=== PATIENT | female | born 1955 | race Caucasian/White ===

== ENCOUNTER → 2016-12-13 | Outpatient (CLI) | payer MEDICAID ==
[2016-12-13 10:11] LABS: Basophils # (A) 0.1 k/uL (0-0.2); Basophils % (A) 1 %; CH 29.1; CHCM 33.2; Eosinophils # (A) 0.2 k/uL (0-0.7); Eosinophils % (A) 2 %; HCT 42.2 % (34.0-46.0); HDW 2.75; Luc % (Auto) 1; Lymphocytes # (A) 1.8 k/uL (1.0-4.8); Lymphocytes % (A) 23 %; MCH 27.1 pg (25.0-35.0); MCHC 30.8 g/dL (31.0-37.0); MCV 88.1 fL (80.0-100.0); Monocytes # (A) 0.5 k/uL (0-1.0); Monocytes % (A) 6 %; Neutrophils # (A) 5.2 k/uL (1.3-7.7); Neutrophils % (A) 67 %; RBC 4.79 m/uL (3.80-5.40); RDW 14.6 % (11.5-15.5); WBC 7.7 k/uL (3.8-10.6); WBC (Perox) 7.94
[2016-12-13 10:40] LABS: ALT 25 U/L (9-52); AST 17 U/L (14-36); Alkaline Phosphatase 100 U/L (38-126); Anion Gap 12 mmol/L; Blood Urea Nitrogen 23 mg/dL (7-17); Carbon Dioxide 30 mmol/L (22-30); Chloride 102 mmol/L (98-107); Cholesterol 201 mg/dL (<200); Glucose 89 mg/dL (74-99); HDL Cholesterol 48 mg/dL (40-60); Non-African American GFR(MDRD) >60 (>60 ml/min/1.73 sqM); Potassium 3.6 mmol/L (3.5-5.1); Sodium 144 mmol/L (137-145); Total Bilirubin 0.6 mg/dL (0.2-1.3); Total Protein 7.1 g/dL (6.3-8.2); Triglycerides 114 mg/dL (<150)
[2016-12-13 12:15] LABS: Hemoglobin A1C 5.8 % (4.2-6.1)
== END | disposition home or self-care (01) ==
LOC: LABWHC1 08:17
PROVIDERS: ATTEND Internal Medicine Geriatric Medicine
DX: E78.00 Pure hypercholesterolemia, unspecified (principal); F32.9 Major depressive disorder, single episode, unspecified; I10 Essential (primary) hypertension; E11.9 Type 2 diabetes mellitus without complications; R53.83 Other fatigue
CPT/HCPCS: 36415; 80053; 80061; 83036; 84439; 84443; 85025

== ENCOUNTER → 2017-08-02 | Outpatient (CLI) | payer MEDICAID ==
[2017-08-02 08:45] LABS: Basophils % (A) 1 %; CH 28.5; Eosinophils # (A) 0.2 k/uL (0-0.7); Eosinophils % (A) 2 %; HCT 40.2 % (34.0-46.0); HDW 2.69; HGB 12.9 gm/dL (11.4-16.0); Luc % (Auto) 2; Lymphocytes # (A) 2.1 k/uL (1.0-4.8); Lymphocytes % (A) 25 %; MCH 28.7 pg (25.0-35.0); MCHC 32.2 g/dL (31.0-37.0); MCV 89.3 fL (80.0-100.0); Mean Platelet Volume 7.4; Monocytes # (A) 0.5 k/uL (0-1.0); Monocytes % (A) 6 %; Neutrophils # (A) 5.4 k/uL (1.3-7.7); Neutrophils % (A) 65 %; WBC 8.4 k/uL (3.8-10.6); WBC (Perox) 8.41
[2017-08-02 09:11] LABS: ALT 33 U/L (9-52); AST 23 U/L (14-36); Alkaline Phosphatase 105 U/L (38-126); Anion Gap 11 mmol/L; Blood Urea Nitrogen 21 mg/dL (7-17); Calcium 9.6 mg/dL (8.4-10.2); Carbon Dioxide 26 mmol/L (22-30); Chloride 107 mmol/L (98-107); Cholesterol 197 mg/dL (<200); Glucose 93 mg/dL (74-99); HDL Cholesterol 47 mg/dL (40-60); Non-African American GFR(MDRD) >60 (>60 ml/min/1.73 sqM); Potassium 3.7 mmol/L (3.5-5.1); Sodium 144 mmol/L (137-145); Total Bilirubin 0.3 mg/dL (0.2-1.3)
[2017-08-02 10:46] LABS: Hemoglobin A1C 5.9 % (4.2-6.1)
== END | disposition home or self-care (01) ==
LOC: LABWHC1 08:00
PROVIDERS: ATTEND Internal Medicine Geriatric Medicine
DX: E78.00 Pure hypercholesterolemia, unspecified (principal); I10 Essential (primary) hypertension; E11.9 Type 2 diabetes mellitus without complications
CPT/HCPCS: 36415; 80053; 80061; 83036; 84439; 84443; 85025

== ENCOUNTER → 2018-05-29 | Outpatient (CLI) | payer MEDICAID ==
[2018-05-29 09:16] LABS: Albumin 3.8 g/dL (3.5-5.0); Calcium 9.6 mg/dL (8.4-10.2); Total Bilirubin 0.4 mg/dL (0.2-1.3); Total Protein 6.5 g/dL (6.3-8.2)
[2018-05-29 09:29] LABS: Basophils % (A) 0 %; Eosinophils # (A) 0.1 k/uL (0-0.7); Eosinophils % (A) 2 %; HCT 39.5 % (34.0-46.0); HGB 12.9 gm/dL (11.4-16.0); Lymphocytes # (A) 2.2 k/uL (1.0-4.8); Lymphocytes % (A) 30 %; MCH 28.5 pg (25.0-35.0); MCHC 32.7 g/dL (31.0-37.0); Mean Platelet Volume 7.8; Monocytes # (A) 0.6 k/uL (0-1.0); Monocytes % (A) 8 %; Neutrophils # (A) 4.2 k/uL (1.3-7.7); Neutrophils % (A) 57 %; Platelet Count 318 k/uL (150-450); RBC 4.54 m/uL (3.80-5.40); RDW 15.6 % (11.5-15.5); WBC 7.3 k/uL (3.8-10.6)
[2018-05-29 09:31] LABS: T4, Free (Free Thyroxine) 0.99 ng/dL (0.78-2.19)
[2018-05-29 17:54] LABS: Hemoglobin A1C 5.9 % (4.0-6.0)
== END | disposition home or self-care (01) ==
LOC: LABWHC1 08:18
PROVIDERS: ATTEND Internal Medicine Geriatric Medicine
DX: I10 Essential (primary) hypertension (principal); R53.83 Other fatigue; E11.9 Type 2 diabetes mellitus without complications
CPT/HCPCS: 36415; 80053; 80061; 82607; 82728; 83036; 84439; 84443; 85025

== ENCOUNTER → 2018-09-11 | Outpatient (CLI) | payer MEDICAID ==
--- NOTE | 2018-09-11 21:30 | CONS ---
CONSULTATION REASON FOR CONSULTATION: Excessive daytime sleepiness. 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 She is falling asleep on her desk at work. She is going to bed around 10:30 p.m., waking up 6:15 am in the morning. On weekends she wakes up 7:30 am in the morning. Going to bed around 11:00 pm. On average, she is taking around 7-8 hours of sleep. No snoring and she has undergone a sleep study back in 2003 and she was told to have minimal disease. She has had had issues with sleep initiation and she has taken [id number]-[id number] diphenhydramine at a dose of 50 mg. She has also taken Neurontin 800 mg 3 times a day which is maximum dose for peripheral neuropathy/neuropathic pain. She is also on citalopram for chronic anxiety/depression. She takes that in the evening. Her other comorbidities include diabetes mellitus, hyperlipidemia, sciatica, hypertension and osteoarthritis. No previous history of sleep apnea. No narcolepsy. No sleep paralysis. No hallucinations. No cataplexy. No stroke. No head trauma. No history of any active anxiety or depression for now and she has done well treated with citalopram. She does not fall asleep while driving her vehicle. PAST MEDICAL HISTORY: Diabetes, hyperlipidemia, neuropathy, sciatica, hypertension and osteoarthritis. PAST SURGICAL HISTORY: Includes sinus surgery x2. and radiofrequency ablation of the spine and the roots. This was done for chronic back pain. DRUG ALLERGIES: Not known. OUTPATIENT MEDICATION LIST: Include Benadryl 50 mg at bedtime. Protonix 40 mg p.o. daily, Lipitor 20 mg p.o. daily, glimepiride 2 mg half tablet twice a day. Citalopram 40 mg p.o. daily, hydrocodone acetaminophen 10/325 as needed. Gabapentin 800 mg 3 times a day. Losartan 100 mg p.o. daily and Norvasc 5 mg p.o. daily. SOCIAL HISTORY: Nonsmoker. No history of alcohol, no history of IV drugs. FAMILY HISTORY: Negative for sleep apnea. REVIEW OF SYSTEMS: 12-point review of system was done. Positive findings are mentioned above in history of present illness. No history of any nocturia. No waking up choking or gasping sensation. No grinding of the teeth. No sleepwalking. No dry mouth. No panic attacks. No palpitations. No sweating. No sleepwalking. No anxiety. No claustrophobia. No recent weight gain. PHYSICAL EXAMINATION: BP is 117/71, pulse 73, respirations 16, temperature 98.4. Saturation 94% on room air. Weight is 205. Height is 5 feet 1. Neck size is 14-3/4 of an inch. Lesage score is 21, and BMI 38.7. GENERAL APPEARANCE: Calm, comfortable. HEAD: Atraumatic, normocephalic. NECK: Supple. No JVD. No goiter or neck masses. LUNGS: Clear to auscultation. HEART: Sounds are regular rate and rhythm. Normal S1, S2. No S3, S4. No murmurs. ABDOMEN: Soft, nontender, and extremities are no edema. No cyanosis or clubbing. NEUROLOGIC: The patient is alert and oriented x3. No focal neurological deficits. IMPRESSION: 1. There is excessive sleepiness in the daytime. Lesage score of 21. This is likely a drug induced phenomena. The patient is on a combination of medications which can cause excessive daytime sleepiness which include high-dose Benadryl overnight in addition to Neurontin which she is taking at a maximum dose of 2400 mg on a daily basis. 2. Diabetes mellitus. 3. Hyperlipidemia. 4. Neuropathy. 5. Sciatica. 6. Hypertension. 7. Osteoarthritis. PLAN: Recommend stopping the diphenhydramine. It is likely the patient is having sleep onset insomnia as the patient has taken citalopram at night time. We will switch the citalopram to a morning schedule and we will use zolpidem 10 mg on an as needed basis to initiate sleep if needed. A total of 20 mg pf 10 mg was given to the patient. Meanwhile I asked her to continue taking the gabapentin 800 mg only at bedtime and discontinue in the morning and noontime dose. She will go like this for another month and she will contact me back. If no improvement in her daytime sleepiness, we will do a sleep study. MMODL / IJN: [id number] /
== END ==
LOC: SLEEP 15:54
PROVIDERS: ATTEND Internal Medicine Critical Care Medicine
DX: G47.10 Hypersomnia, unspecified (principal); E11.9 Type 2 diabetes mellitus without complications; E78.5 Hyperlipidemia, unspecified; G62.9 Polyneuropathy, unspecified; M54.30 Sciatica, unspecified side; I10 Essential (primary) hypertension; M19.90 Unspecified osteoarthritis, unspecified site; Z79.899 Other long term (current) drug therapy; Z79.84 Long term (current) use of oral hypoglycemic drugs; Z79.891 Long term (current) use of opiate analgesic
CPT/HCPCS: 99211

== ENCOUNTER → 2018-12-07 | Outpatient (CLI) | payer MEDICAID ==
--- NOTE | 2018-12-07 08:43 | MR ---
MRI CERVICAL SPINE: CLINICAL HISTORY: Spondylopathy per order. Headache with neck pain for 3 months causing pain or weakn ess into both arms and fingers per patient. TECHNIQUE: Multiplanar, multisequence imaging of the cervical spine is performed without IV contrast. COMPARISON: None. FINDINGS: Sagittal images of the cervical spine show the craniocervical junction to appear within nor mal limits. The cervical and upper thoracic spinal cord is normal in caliber and signal. Vertebral alignment is straightened with grade 1 retrolisthesis of C4 on C5 and C5 on C6 appreciated. The vert ebral body heights are normal. There is mild to moderate disc space narrowing C4-C5 and C5-C6 levels. There is mild disc space narrowing C6-C7 level. Posterior disc herniations are effacing anterior the maria teresa sac at these levels on sagittal images. Additional small disc herniations are seen in the upper t horacic spine on sagittal images effacing anterior thecal sac The bone marrow signal intensity is wit hin normal limits. Mild to moderate anterior spurring mid cervical levels is noted. Axial images at C2-C3 level shows mild right-sided neural foraminal narrowing due to foraminal disc p rotrusion. Axial images at C3-C4 level show some marginal spurring and uncovertebral facet degenerative changes contributing to mild bilateral neural foraminal narrowing Axial images at C4-C5 level show spondylolisthesis and broad-based right paracentral disc protrusion effacing anterior thecal sac and causing moderate bilateral neural foraminal narrowing. Axial images at C5-C6 level show spondylolisthesis and broad-based posterior disc protrusion effacing anterior thecal sac and causing axaj-tg-gyxkfqhi bilateral neural foraminal narrowing. Axial images at C6-C7 level show lobulated right paracentral disc protrusion effacing anterior thecal sac, left-sided neural foramina is mildly narrowed. Axial images at C7-T1 level are felt within normal limits. IMPRESSION: Straightening of cervical spine with multilevel degenerative changes as detailed above, m ost prominent findings are noted cervical levels as there is additional spondylolisthesis at these le vels noted.
== END ==
LOC: RADMRIMAIN 07:43
PROVIDERS: ATTEND Internal Medicine Geriatric Medicine
DX: M48.02 Spinal stenosis, cervical region (principal); M99.71 Connective tissue and disc stenosis of intervertebral foramina of cervical region; M43.12 Spondylolisthesis, cervical region; M50.21 Other cervical disc displacement, high cervical region; M47.812 Spondylosis without myelopathy or radiculopathy, cervical region
CPT/HCPCS: 72141

== ENCOUNTER → 2019-02-05 | Outpatient (CLI) | payer MEDICAID ==
[2019-02-05 08:37] LABS: Basophils # (A) 0.1 k/uL (0-0.2); Basophils % (A) 1 %; Eosinophils # (A) 0.2 k/uL (0-0.7); Eosinophils % (A) 2 %; HCT 37.4 % (34.0-46.0); HGB 12.6 gm/dL (11.4-16.0); Lymphocytes % (A) 27 %; MCHC 33.6 g/dL (31.0-37.0); MCV 83.4 fL (80.0-100.0); Mean Platelet Volume 7.5; Monocytes # (A) 0.4 k/uL (0-1.0); Monocytes % (A) 6 %; Neutrophils # (A) 4.6 k/uL (1.3-7.7); Neutrophils % (A) 62 %; Platelet Count 411 k/uL (150-450); RBC 4.49 m/uL (3.80-5.40); WBC 7.4 k/uL (3.8-10.6)
[2019-02-05 17:21] LABS: Albumin 4.1 g/dL (3.80-4.90); Albumin/Globulin Ratio 1.95 (1.60-3.17); Anion Gap 8.5 mmol/L (4.00-12.00); Calcium 9.4 mg/dL (8.7-10.3); Carbon Dioxide 32.5 mmol/L (21.6-31.8); Globulin 2.1 g/dL (1.6-3.3); Potassium 3.3 mmol/L (3.5-5.5); Total Bilirubin 0.4 mg/dL (0.2-1.2); Total Protein 6.2 g/dL (6.2-8.2)
[2019-02-05 20:14] LABS: Hemoglobin A1C 5.8 % (4.0-6.0)
== END ==
LOC: LABWHC1 07:46
PROVIDERS: ATTEND Internal Medicine Geriatric Medicine
DX: R13.10 Dysphagia, unspecified (principal); E11.9 Type 2 diabetes mellitus without complications
CPT/HCPCS: 36415; 80053; 80061; 83036; 85025

== ENCOUNTER 2019-02-07 07:52 | Day surgery (SDC) | payer MEDICAID ==
[2019-01-30 18:18] VITALS: BMI 38.7
[~2019-02-07 07:52] MED LIST: DEXAMETHASONE SOD PHOSPHATE 10 MG/ML 1 ML VIAL IV ONE; DEXAMETHASONE SOD PHOSPHATE 4 MG/ML 1 ML VIAL IV ONE; FAMOTIDINE 20 MG/2 ML VIAL IV ONE; HYDROmorphone 0.5 MG/0.5 ML SYRINGE IVP PRN; LACTATED RINGERS 1,000 ML IV SCH; LIDOCAINE 1% 20 ML VIAL (10MG/ML) FOR IV START INTRADERMA PRN; MIDAZOLAM 2 MG/2 ML VIAL IV PRN; ONDANSETRON 4 MG/2 ML VIAL IVP ONE; SCOPOLAMINE 1.5MG/72HR PATCH TRANSDERM ONE; ceFAZolin 1,000 MG in DEXTROSE/WATER 1 50ML.BAG IV ONE
[2019-02-07 08:22] VITALS: RESP 16
[2019-02-07 08:49] LABS: Glucose,Whole Blood 110 mg/dL (75-99)
[2019-02-07] MEDS ORDERED: DEXAMETHASONE SOD PHOS (MDV) 100 MG/10 ML VIAL ONE (09:08)
[2019-02-07] MEDS ORDERED: ROCURONIUM BROMIDE 10 MG/ML 10 ML VIAL IV ONE (09:08)
[2019-02-07] MEDS ORDERED: MIDAZOLAM 2 MG/2 ML VIAL ONE (09:08)
[2019-02-07] MEDS ORDERED: fentaNYL (PF) 50 MCG/ML 2 ML AMP ONE (09:08)
[2019-02-07] MEDS ORDERED: LIDOCAINE 1% INJ 10MG/ML (20 ML MDV) ONE (09:08)
[2019-02-07] MEDS ORDERED: PROPOFOL 10 MG/ML 20 ML VIAL IV ONE (09:08)
--- NOTE | 2019-02-07 09:58 | P.OP ---
Date of Procedure: 02/07/19 Preoperative Diagnosis: Mass vallecula with cervical lymphadenopathy bilaterally Postoperative Diagnosis: Same Procedure(s) Performed: Fine-needle aspiration of bilateral neck nodes Direct microscopic laryngoscopy with removal, biopsy of vallecular mass Anesthesia: ALISONA Surgeon: Chris Anand Estimated Blood Loss (ml): 5 Pathology: other (Fine-needle aspiration of bilateral neck nodes and vallecular mass sent) Condition: stable Disposition: PACU Indications for Procedure: Patient was found to have a vallecular mass on imaging which was unusual and she also had bilateral cervical lymphadenopathy. Biopsy was recommended. Fine- needle aspiration of the bilateral neck nodes in a direct microscopic laryngoscopy with removal and biopsy is recommended. All risks, benefits, and alternative therapies were discussed. Consent was obtained and all questions were answered. Operative Findings: Patient had a large lymphoid mass at the base of the tongue and bilateral cervical lymph nodes noted in zone 2 bilaterally Description of Procedure: Patient was taken to the operative room and placed in the supine position. A general inhalation anesthetic was administered the patient by mask and subsequently intubated with a cuffed endotracheal tube by the department of anesthesia with a functioning IV line in place. Patient was monitored throughout the entire case by the department of anesthesia. The neck was steril lakisha prepped and draped in usual fashion and bilateral fine-needle aspirations were performed of the 2 bilateral lymph nodes in zone 2 on each side. Slides were prepped and sent for pathology. A tooth guard was placed and a Jako laryngoscope was placed into the patient's mouth with care to avoid any trauma to the lips teeth gums and tongue mouth was opened tongue was depressed and the entire Frederic and hypopharynx was evaluated including the piriform sinus, aryepiglottic folds, true and false cords, etc. etc. A large vallecular mass was identified and magnified under microscopic evaluation. Patient had a large amount of the lymph tissue in the vallecula that was abnormal. This was removed for biopsy purposes and the patient tolerated this well. Hemostasis was spontaneous. Patient will be seen in the office in 1 week and the patient is to call me if any problems should arise.
[2019-02-07 10:05] VITALS: TEMP 98
[2019-02-07 10:23] LABS: Glucose,Whole Blood 121 mg/dL (75-99)
[2019-02-07] MEDS ORDERED: ACETAMINOPHEN TAB 325 MG TAB PO ONE (10:56)
[2019-02-07 11:45] VITALS: BP 111/78; PULSE 74
== END 2019-02-07 11:55 | disposition home or self-care (01) ==
LOC: OR 07:52
PROVIDERS: ATTEND Otolaryngology
DX: R59.0 Localized enlarged lymph nodes (principal); E11.9 Type 2 diabetes mellitus without complications; K21.9 Gastro-esophageal reflux disease without esophagitis; J30.9 Allergic rhinitis, unspecified; M79.7 Fibromyalgia; F17.200 Nicotine dependence, unspecified, uncomplicated; Z79.84 Long term (current) use of oral hypoglycemic drugs; Z79.1 Long term (current) use of non-steroidal anti-inflammatories (NSAID); Z79.891 Long term (current) use of opiate analgesic; Z79.899 Other long term (current) drug therapy; Z88.0 Allergy status to penicillin
CPT/HCPCS: 88305; 88173; 10021; 31536; J2250; J1100 ×2; J2405; J2001; J3010; J0690; J2704

== ENCOUNTER 2019-04-05 06:56 | Day surgery (SDC) | payer MEDICAID ==
[2019-04-03 17:54] VITALS: BMI 39.1
[~2019-04-05 06:56] MED LIST changes: -DEXAMETHASONE SOD PHOSPHATE 10 MG/ML 1 ML VIAL IV ONE; -DEXAMETHASONE SOD PHOSPHATE 4 MG/ML 1 ML VIAL IV ONE; -FAMOTIDINE 20 MG/2 ML VIAL IV ONE; -HYDROmorphone 0.5 MG/0.5 ML SYRINGE IVP PRN; -LIDOCAINE 1% 20 ML VIAL (10MG/ML) FOR IV START INTRADERMA PRN; -MIDAZOLAM 2 MG/2 ML VIAL IV PRN; -ONDANSETRON 4 MG/2 ML VIAL IVP ONE; -SCOPOLAMINE 1.5MG/72HR PATCH TRANSDERM ONE; -ceFAZolin 1,000 MG in DEXTROSE/WATER 1 50ML.BAG IV ONE
[2019-04-05 07:20] VITALS: TEMP 97.3
[2019-04-05] MEDS ORDERED: LIDOCAINE 1% 20 ML VIAL (10MG/ML) FOR IV START INTRADERMA ONE (07:22)
[2019-04-05 07:24] LABS: Glucose,Whole Blood 113 mg/dL (75-99)
[2019-04-05] MEDS ORDERED: MIDAZOLAM 2 MG/2 ML VIAL ONE (07:58)
[2019-04-05] MEDS ORDERED: PROPOFOL 10 MG/ML 20 ML VIAL IV ONE (07:58)
[2019-04-05] MEDS ORDERED: fentaNYL (PF) 50 MCG/ML 2 ML AMP ONE (07:58)
--- NOTE | 2019-04-05 08:22 | P.PCN ---
Date of Procedure: 04/05/19 Procedure(s) Performed: BRIEF HISTORY: Patient is a 63-year-old [place] [address] female, scheduled for an elective colonoscopy as a part of screening for colorectal neoplasia. Last endoscopy was in 19 years ago. PROCEDURE PERFORMED: Colonoscopy. PREOPERATIVE DIAGNOSIS: Screening for colon cancer. IV sedation per Anesthesia. PROCEDURE: After informed consent was obtained, the patient, was brought into the endoscopy unit. IV sedation was administered by Anesthesia under continuous monitoring. Digital rectal examination was normal. Initially the Olympus CF-160 flexible video colonoscope was then inserted in the rectum, gradually advanced into the cecum without any difficulty. Careful examination was performed as the scope was gradually being withdrawn. Ileocecal valve and the appendiceal orifice were visualized and appeared normal. Prep was excellent. Mucosa of the cecum, ascending colon, transverse colon, descending colon, sigmoid colon, and rectum appeared normal. Retroflexion was performed in the rectum and no lesions were seen. The patient tolerated the procedure well. IMPRESSION: Normal-appearing colon from rectum to cecum with no evidence of colorectal neoplasia. RECOMMENDATIONS: Findings of this examination were discussed with the patient is well as her family. She was advised to have a repeat screening colonoscopy in 10 years.
[2019-04-05 08:47] VITALS: BP 119/82; PULSE 60; RESP 18
== END 2019-04-05 08:55 | disposition home or self-care (01) ==
LOC: ORWHC2ENDO 06:56
PROVIDERS: ATTEND Internal Medicine Gastroenterology
DX: Z12.11 Encounter for screening for malignant neoplasm of colon (principal); I10 Essential (primary) hypertension; E78.5 Hyperlipidemia, unspecified; F17.210 Nicotine dependence, cigarettes, uncomplicated; E11.9 Type 2 diabetes mellitus without complications; K21.9 Gastro-esophageal reflux disease without esophagitis; M79.7 Fibromyalgia; Z79.899 Other long term (current) drug therapy; Z98.890 Other specified postprocedural states
CPT/HCPCS: J2250; J3010; J2704; G0121

== ENCOUNTER → 2020-08-11 | Outpatient (CLI) | payer MEDICAID ==
[2020-08-11 08:42] LABS: Anisocytosis Slight; Basophils # (A) 0.1 k/uL (0-0.2); Basophils % (A) 1 %; Eosinophils # (A) 0.2 k/uL (0-0.7); Eosinophils % (A) 3 %; HCT 40.7 % (34.0-46.0); HGB 13.3 gm/dL (11.4-16.0); Lymphocytes # (A) 1.9 k/uL (1.0-4.8); Lymphocytes % (A) 25 %; MCH 28.4 pg (25.0-35.0); MCHC 32.7 g/dL (31.0-37.0); MCV 86.8 fL (80.0-100.0); Mean Platelet Volume 7.6; Monocytes # (A) 0.5 k/uL (0-1.0); Monocytes % (A) 7 %; Neutrophils # (A) 4.8 k/uL (1.3-7.7); Neutrophils % (A) 63 %; Platelet Count 345 k/uL (150-450); RBC 4.69 m/uL (3.80-5.40); RDW 16.3 % (11.5-15.5); WBC 7.7 k/uL (3.8-10.6)
[2020-08-11 16:21] LABS: African American GFR (CKD) 90.9 (60.0-200.0); Albumin 3.9 g/dL (3.80-4.90); Albumin/Globulin Ratio 1.7 (1.60-3.17); Anion Gap 9.5 mmol/L (4.00-12.00); Calcium 9.3 mg/dL (8.7-10.3); Carbon Dioxide 30.5 mmol/L (21.6-31.8); Chol/HDL Ratio 4.52; Globulin 2.3 g/dL (1.6-3.3); LDL Cholesterol,Calculated 131.2 mg/dL (0.0-131.0); Non-African American GFR(CKD) 78.5 (60.0-200.0); Potassium 3.5 mmol/L (3.5-5.5); Total Bilirubin 0.3 mg/dL (0.3-1.2); Total Protein 6.2 g/dL (6.2-8.2); VLDL Calculation 23.8 mg/dL (5.00-40.00)
[2020-08-11 17:45] LABS: Hemoglobin A1C 5.8 % (4.0-6.0)
[2020-08-11 19:29] LABS: Urine Creatinine 156.5 mg/dL
== END | disposition home or self-care (01) ==
LOC: LABWHC1 07:43
PROVIDERS: ATTEND Internal Medicine Geriatric Medicine
DX: E11.9 Type 2 diabetes mellitus without complications (principal); J44.9 Chronic obstructive pulmonary disease, unspecified; M49.8 Spondylopathy in diseases classified elsewhere
CPT/HCPCS: 36415; 80053; 80061; 82043; 82570; 83036; 84443; 85025

== ENCOUNTER → 2021-06-04 | Outpatient (CLI) | payer MEDICAID ==
--- NOTE | 2021-06-05 04:54 | MR ---
EXAMINATION TYPE: MR cervical spine wo con DATE OF EXAM: 06/04/2021 COMPARISON: 12/07/2018 HISTORY: Shoulder and neck pain into both arms for 6 months. Multiplanar multiecho imaging of the cervical spine without contrast. Cervical vertebra have normal alignment. There is degenerative disc space narrowing from C3 to C7. Th ere is anterior and posterior endplate spur formation and disc bulging from C4 to C7. Spinal canal me asures 6.5 mm at C5-6. This is the narrowest point. Canal measures 7.5 mm at C4-5. Cervical cord show s no edema. There is no cervical paraspinal mass. There is no compression fracture. Brainstem is inta ct. Facet joints appear intact. IMPRESSION: Multilevel spondylotic changes with posterior disc bulging and relative spinal stenosis at C4-5 and C 5-6. No significant change compared to old exam.
== END | disposition home or self-care (01) ==
LOC: RADMRIMAIN 15:39
PROVIDERS: ATTEND Orthopaedic Surgery
DX: M47.812 Spondylosis without myelopathy or radiculopathy, cervical region (principal)
CPT/HCPCS: 72141

== ENCOUNTER → 2021-06-16 | Outpatient (CLI) | payer MEDICAID ==
[2021-06-16 10:14] VITALS: BP 120/81; PULSE 68; RESP 18; TEMP 98.7
--- NOTE | 2021-06-16 10:24 | P.PAINCN ---
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[employer], the intensity of the pain increased over time , patient had physical therapy for several months without any significant benefit and she tried the home exercises and she continues to have severe pain, she tried the NSAID, Neurontin, Pathfork, Tylenol, she continued to have severe pain, she feels some weakness in the upper extremity bilaterally, she denies any fever or night sweats she denies any change in the bowel movements or urination Past Medical History Past Medical History: Diabetes Mellitus, Fibromyalgia, GERD/Reflux, Hyperlipidemia, Hypertension, Musculoskeletal Disorder, Osteoarthritis (OA) Additional Past Medical History / Comment(s): bulging discs History of Any Multi-Drug Resistant Organisms: None Reported Past Surgical History: Section Additional Past Surgical History / Comment(s): sinus surg. x3,mass removed from throat. sasha cataract surgery Past Anesthesia/Blood Transfusion Reactions: No Reported Reaction, Motion Sickness Smoking Status: Current every day smoker - Past Family History Mother Family Medical History: Cancer Brother(s) Family Medical History: Cancer Medications and Allergies Home Medications Medication Instructions Recorded Confirmed Type Atorvastatin [Lipitor] 20 mg PO HS 01/31/19 06/15/21 History Doxepin [SINEquan] 10 mg PO HS 01/31/19 06/15/21 History Gabapentin [Neurontin] 600 mg PO HS 01/31/19 06/15/21 History Glimepiride [Amaryl] 1 mg PO BID 01/31/19 06/15/21 History HYDROcodone/APAP 10-325MG [Pathfork 1 tab PO Q6HR PRN 01/31/19 06/15/21 History 10-325] Ibuprofen 200 mg PO Q6H PRN 01/31/19 06/15/21 History Losartan Potassium [Cozaar] 100 mg PO HS 01/31/19 06/15/21 History Pantoprazole Sodium [Protonix] 40 mg PO QAM 01/31/19 06/15/21 History amLODIPine [Norvasc] 5 mg PO HS 01/31/19 06/15/21 History Acetaminophen [Tylenol] 2 tab PO Q6H PRN 04/03/19 06/15/21 History Allergies Allergy/AdvReac Type Severity Reaction Status Date / Time Sulfa (Sulfonamide Allergy Itching Verified 06/15/21 14:47 Antibiotics) Physical Exam Vitals: Vital Signs Temp Pulse Resp BP Pulse Ox 06/16/21 09:58 98.7 F 68 18 120/81 96 Physical Examinations : -Constitutiona : Cooperative , not in acute distress . -HEENT : nech : supple , no Lymphadenopathy , normal thyroid size . : eyes : no ptosis , no icterus, no photophobia . - neurologic : Cranial nerve II to XII intact , no focal neurological deffecit . -psychatric : alert , oriented X 3 , appropriate affect , intact judgment and insight . -Lymphatic : no Lymphadenopathy . - musculoskeltal : Cervical Spine motor stregnth in the deltoid and biceps, normal right side , normal Left side motor stregnth biceps and the wrist extensors normal right side ,normal left side . motor stregnth in the triceps muscle . normal Right side , normal Left side deep tendon reflexes normal at the biceps , normal at Brachioradialis , normal at triceps. cervical facet loading test: Positive Bilaterally Spurling test= positive Right , positive left. Neck distraction test= positive Right , positive left. Vicky sign= positive right, positive left . Decrease range of motion of shoulder joints bilaterlly . Lumber spine moter stegnth lower extremities ,thigh and legs 5/5 Right side , 5/5 Left side Results Comments: MRI of the cervical spine without contrast multilevel spondylosis in the cervical spine and spinal stenosis at C4 5 and C5 6 Assessment and Plan Plan: Assessment and plan=1-cervical spinal stenosis. 2-cervical spondylosis with cervical facet a rthropathy without myelopathy. Patient could benefit from cervical epidural steroid injection at C6 7 If she continued to have severe neck pain after epidural steroid injection 2 and then we'll do diagnostic medial branch block Time with Patient: Greater than 30 PQRS Measure Charge Sheet Measure #130: Documentation of Current Meds in Medical Chart: Patient's medications documented in chart Measure #226: Tobacco Use: Screen & Cessation Intervention: Pt not a tobacco user Measure #111: Pneumonia Vaccination: Pneumococcal vaccine NOT administered or previously given Measure #47: Advance Care Plan: Advance care planning discussed & documented, pt chose/unable to give Measure #412: Opioid Treatment Agreement: No documentation of signed opioid treatment agreement Measure #408: Opioid Therapy Follow-up Evaluation: Patient had NO f/u eval minimum every 3 months during opioid therapy Measure #317: Preventitive Care & Scrn High Bld Press & F/U: Normal blood pressure, f/u not required Measure #128: Body Mass Index (BMI) Screening & Follow-up: BMI documented ABOVE normal parameters - f/u documented Measure #131: Pain Assessment & Follow-up: Pain positive & plan documented, Follow-up scheduled Measure #431: Unhealthy Alcohol Use Preventative Care & Scrn: Patient not identified as an unhealthy alcohol user PQRS Narrative: Smoking Status Current every day smoker Blood Pressure 120/81 Pain Intensity [Neck] 3 Scale Used Numeric (1 - 10) Hx Alcohol Use (MH) Yes: occ Home Medications: Ambulatory Orders Atorvastatin [Lipitor] 20 mg PO HS 01/31/19 Doxepin [SINEquan] 10 mg PO HS 01/31/19 Gabapentin [Neurontin] 600 mg PO HS 01/31/19 Glimepiride [Amaryl] 1 mg PO BID 01/31/19 HYDROcodone/APAP 10-325MG [Pathfork 10-325] 1 tab PO Q6HR PRN 01/31/19 Ibuprofen 200 mg PO Q6H PRN 01/31/19 Losartan Potassium [Cozaar] 100 mg PO HS 01/31/19 Pantoprazole Sodium [Protonix] 40 mg PO QAM 01/31/19 amLODIPine [Norvasc] 5 mg PO HS 01/31/19 Acetaminophen [Tylenol] 2 tab PO Q6H PRN 04/03/19
== END | disposition home or self-care (01) ==
LOC: PNWHC3 09:37
PROVIDERS: ATTEND Specialist
DX: M54.12 Radiculopathy, cervical region (principal); M50.30 Other cervical disc degeneration, unspecified cervical region; M48.02 Spinal stenosis, cervical region; M47.892 Other spondylosis, cervical region
CPT/HCPCS: 99211

== ENCOUNTER 2021-07-06 07:31 | Day surgery (SDC) | payer MEDICAID ==
[2021-07-01 14:30] VITALS: BMI 40.6
[2021-07-06 07:59] VITALS: RESP 16
[2021-07-06] MEDS ORDERED: LIDOCAINE 1% (10MG/ML) FOR IV START INTRADERMA ONE (08:05)
[2021-07-06 08:07] LABS: Glucose,Whole Blood 113 mg/dL (75-99)
[2021-07-06] MEDS ORDERED: MIDAZOLAM 2 MG/2 ML VIAL ONE (08:11)
[2021-07-06] MEDS ORDERED: DEXAMETHASONE SOD PHOSPHATE 10 MG/ML 1 ML VIAL ONE (08:11)
[2021-07-06] MEDS ORDERED: IOPAMIDOL M200 10 ML VIAL ONE (08:11)
[2021-07-06] MEDS ORDERED: fentaNYL (PF) 50 MCG/ML 2 ML AMP ONE (08:11)
--- NOTE | 2021-07-06 08:26 | P.PCN ---
Date of Procedure: 07/06/21 Procedure(s) Performed: . PROCEDURE 1. Cervical epidural steroid injection under fluoroscopic guidance, C 6-7 (fluoroscopy images available in the radiology department ) 2. Cervical epidurogram. PREOPERATIVE DIAGNOSIS: 1- Cervical spinal stenosis 2-cervical spondylosis with cervical Facet arthropathy without myelopathy POSTOPERATIVE DIAGNOSIS: : 1- Cervical spinal stenosis 2-cervical spondylosis with cervical Facet arthropathy without myelopathy ANESTHESIA: Local anesthesia with lidocaine 1 % , and moderate sedation, with Versed 1 mg ,and Fentanyl 50 mcg. EBL 0 PROCEDURE INDICATION: The patient with neck pain and radiculitis unresponsive to conservative treatment consents for procedure. PROCEDURE DESCRIPTION / TECHNIQUE: The patient was seen and identified in the preoperative area. Risks, benefits, complications, including but not limited to infections ,bleeding , allergic reactions to the medications ,and not complete pain releife, and alternatives were discussed with the patient, the patient agreed to proceed with the procedure and signed the consent. Patient was taken to the OR and time out was completed. The patient was placed in the prone position on the procedure table. A pillow was placed under the patients chest to increase the cervical interlaminar space. The cervical area was prepped and draped in the usual sterile fashion. Vital signs were closely monitored during the procedure. Conscious sedation was used during the procedure to decrease patients anxiety. Using anterior-posterior fluoroscopy, the C6-7 interlaminar space was identified and the skin over this site was marked and then infiltrated with 1% lidocaine subcutaneously. Subsequently, a 20-gauge 3-1/2-inch Tuohy epidural needle was inserted and advanced toward the epidural space by means of the ``hanging-drop technique and guided by AP and lateral fluoroscopy. The correct needle position in the epidural space was verified with the injection of 2 mL of the water soluble contrast dye Isovue-200 and observing an excellent epidurogram with the epidural spread of the dye, after negative aspiration for blood and CSF and in the absence of paresthesias. then, mixture containing 20 mg Dexamethasone and 2 ml of preservative-free normal saline injected and a washout of epidurogram was seen. Needle was withdrawn intact, skin was cleansed, and bandages were applied. Complications= none. Disposition= patient was placed in supine position and transferred to the recovery room area in stable condition and there was no evidence of upper or lower extremity motor or sensory deficit after the procedure patient was discharged from recovery room after discharge criteria met and home discharge instructions was given by the staff and patient will follow with the pain clinic in 2-4 weeks
[2021-07-06] MEDS ORDERED: IV FLUID CONTINUATION 800 ML IV ONE (08:28)
[2021-07-06 08:36] LABS: Glucose,Whole Blood 117 mg/dL (75-99)
--- NOTE | 2021-07-06 08:43 | FL ---
Fluoroscopy INDICATION: Pain FINDINGS: Fluoroscopy time: 7 seconds. Images obtained: 1. IMPRESSIONS: 1. Documentation of fluoroscopy.
[2021-07-06 08:45] VITALS: BP 143/92; PULSE 63
== END 2021-07-06 08:58 | disposition home or self-care (01) ==
LOC: ORPAIN 07:31
PROVIDERS: ATTEND Specialist
DX: M47.812 Spondylosis without myelopathy or radiculopathy, cervical region (principal); M48.02 Spinal stenosis, cervical region; F41.9 Anxiety disorder, unspecified
CPT/HCPCS: 62321; 64490; J2250; J1100; J3010; Q9966; 99152

== ENCOUNTER 2021-07-29 07:05 | Day surgery (SDC) | payer MEDICAID ==
[2021-07-28 10:47] VITALS: BMI 39.4
[2021-07-29 07:28] VITALS: TEMP 97.2
[2021-07-29 07:29] LABS: Glucose,Whole Blood 84 mg/dL (75-99)
[2021-07-29] MEDS ORDERED: MIDAZOLAM 2 MG/2 ML VIAL ONE (07:32)
[2021-07-29] MEDS ORDERED: IOPAMIDOL M200 10 ML VIAL ONE (07:32)
[2021-07-29] MEDS ORDERED: DEXAMETHASONE SOD PHOSPHATE 10 MG/ML 1 ML VIAL ONE (07:32)
[2021-07-29] MEDS ORDERED: fentaNYL (PF) 50 MCG/ML 2 ML AMP ONE (07:32)
--- NOTE | 2021-07-29 07:44 | P.PCN ---
Date of Procedure: 07/29/21 Procedure(s) Performed: PROCEDURE 1. Cervical epidural steroid injection under fluoroscopic guidance, C 6-7 (fluoroscopy images available in the radiology department ) 2. Cervical epidurogram. PREOPERATIVE DIAGNOSIS: 1- Cervical spinal stenosis 2-cervical spondylosis with cervical Facet arthropathy without myelopathy POSTOPERATIVE DIAGNOSIS: : 1- Cervical spinal stenosis 2-cervical spondylosis with cervical Facet arthropathy without myelopathy ANESTHESIA: Local anesthesia with lidocaine 1 % , and moderate sedation, with Versed 1 mg ,and Fentanyl 50 mcg. EBL 0 PROCEDURE INDICATION: The patient with neck pain and radiculitis unresponsive to conservative treatment consents for procedure. PROCEDURE DESCRIPTION / TECHNIQUE: The patient was seen and identified in the preoperative area. Risks, benefits, complications, including but not limited to infections ,bleeding , allergic reactions to the medications ,and not complete pain releife, and alternatives were discussed with the patient, the patient agreed to proceed with the procedure and signed the consent. Patient was taken to the OR and time out was completed. The patient was placed in the prone position on the procedure table. A pillow was placed under the patients chest to increase the cervical interlaminar space. The cervical area was prepped and draped in the usual sterile fashion. Vital signs were closely monitored during the procedure. Conscious sedation was used during the procedure to decrease patients anxiety. Using anterior-posterior fluoroscopy, the C6-7 interlaminar space was identified and the skin over this site was marked and then infiltrated with 1% lidocaine subcutaneously. Subsequently, a 20-gauge 3-1/2-inch Tuohy epidural needle was inserted and advanced toward the epidural space by means of the ``hanging-drop technique and guided by AP and lateral fluoroscopy. The correct needle position in the epidural space was verified with the injection of 2 mL of the water soluble contrast dye Isovue-200 and observing an excellent epidurogram with the epidural spread of the dye, after negative aspiration for blood and CSF and in the absence of paresthesias. then, mixture containing 20 mg Dexamethasone and 2 ml of preservative-free normal saline injected and a washout of epidurogram was seen. Needle was withdrawn intact, skin was cleansed, and bandages were applied. Complications= none. Disposition= patient was placed in supine position and transferred to the [facility] area in stable condition and there was no evidence of upper or lower extremity motor or sensory deficit after the procedure patient was discharged from recovery room after discharge criteria met and home discharge instructions was given by the staff and patient will follow with the pain clinic in 2-4 weeks
[2021-07-29 07:54] VITALS: RESP 16
[2021-07-29 08:12] VITALS: BP 111/74; PULSE 69
--- NOTE | 2021-07-29 08:32 | FL ---
Fluoroscopy HISTORY: Pain 9 seconds fluoroscopy time supplied to the referring clinician. 1 intraoperative C-arm images docume nt the procedure. See dictated report from anesthesia.
== END 2021-07-29 08:18 | disposition home or self-care (01) ==
LOC: ORPAIN 07:05
PROVIDERS: ATTEND Specialist
DX: M47.22 Other spondylosis with radiculopathy, cervical region (principal); M48.02 Spinal stenosis, cervical region; Z88.2 Allergy status to sulfonamides; Z78.0 Asymptomatic menopausal state; E11.9 Type 2 diabetes mellitus without complications
CPT/HCPCS: 62321; J2250; J1100; J3010; Q9966

== ENCOUNTER → 2021-08-03 | Outpatient (CLI) | payer MEDICAID | END | disposition home or self-care (01) | LOC: LABWHC1 08:55 | PROVIDERS: ATTEND Internal Medicine Geriatric Medicine | DX: Z53.9 Procedure and treatment not carried out, unspecified reason (principal) ==

== ENCOUNTER → 2021-08-03 | Outpatient (CLI) | payer MEDICAID ==
[2021-08-03 16:33] LABS: Basophils # (A) 0.03 X 10*3/uL (0.00-0.10); Basophils % (A) 0.4 %; Eosinophils # (A) 0.23 X 10*3/uL (0.04-0.35); Eosinophils % (A) 2.7 %; HCT 38.2 % (37.2-46.3); HGB 12.3 g/dL (12.0-15.0); Lymphocytes % (A) 26.9 %; MCH 28.3 pg (27.0-32.0); MCHC 32.2 g/dL (32.0-37.0); MCV 87.8 fL (80.0-97.0); Mean Platelet Volume 10.9 fL (9.5-12.2); Monocytes # (A) 0.64 X 10*3/uL (0.20-1.00); Monocytes % (A) 7.5 %; Neutrophils # (A) 5.34 X 10*3/uL (1.80-7.70); Neutrophils % (A) 62.3 %; Platelet Count 355 X 10*3/uL (140-440); RBC 4.35 X 10*6/uL (4.10-5.20); RDW 15.6 % (11.5-14.5); WBC 8.56 X 10*3/uL (4.50-10.00)
[2021-08-04 20:20] LABS: African American GFR (CKD) 52.1 (60.0-200.0); Albumin 4.1 g/dL (3.8-4.9); Albumin/Globulin Ratio 1.53 (1.60-3.17); Anion Gap 21.2 mmol/L (4.00-12.00); BUN/Creat Ratio 21.75 Ratio (12.00-20.00); Blood Urea Nitrogen 27.4 mg/dL (9.0-27.0); Calcium 9.3 mg/dL (8.7-10.3); Carbon Dioxide 23.2 mmol/L (21.6-31.8); Chol/HDL Ratio 5.62 Ratio; Globulin 2.7 g/dL (1.6-3.3); HDL Cholesterol 40.2 mg/dL (40.00-60.00); LDL Cholesterol,Calculated 149.8 mg/dL (0.0-131.0); Potassium 3.6 mmol/L (3.5-5.5); Total Bilirubin 0.3 mg/dL (0.30-1.20); Total Protein 6.7 g/dL (6.2-8.2)
== END | disposition home or self-care (01) ==
LOC: LABWHC1 08:23
PROVIDERS: ATTEND Internal Medicine Geriatric Medicine
DX: J44.9 Chronic obstructive pulmonary disease, unspecified (principal); E78.2 Mixed hyperlipidemia; E11.9 Type 2 diabetes mellitus without complications; G62.9 Polyneuropathy, unspecified
CPT/HCPCS: 36415; 80053; 80061; 83036; 84443; 85025

== ENCOUNTER → 2021-08-23 | Outpatient (CLI) | payer MEDICAID ==
[2021-08-23 08:58] VITALS: BP 121/88; PULSE 74; RESP 18; TEMP 98.9
--- NOTE | 2021-08-23 09:31 | P.PN ---
Subjective Progress Note Date: 08/23/21 This is Follow up visit for this 65 years old female ,with a chronic history of severe neck pain, radiation to the shoulder area bilaterally, started more than 8 months ago ,she denies any initiating event patient reported that she does a lot of computer work she works as a engineering secretary, the intensity of the pain increased over time , patient had physical therapy for several months without any significant benefit, and she tried the home exercises ,and she continues to have severe pain, she tried the NSAID, Neurontin, [place], Tylenol, she continued to have severe pain, recently we have done cervical epidural steroid injections 2, he feels some improvement of her neck pain but she continued to have severe upper extremity pain especially in the humerus area bilaterally she feels some weakness in the upper extremity bilaterally, she denies any fever or night sweats she denies any change in the bowel movements or urination Physical Examinations : -Constitutiona : Cooperative , not in acute distress . -HEENT : nech : supple , no Lymphadenopathy , normal thyroid size . : eyes : no ptosis , no icterus, no photophobia . - neurologic : Cranial nerve II to XII intact , no focal neurological deffecit . -psychatric : alert , oriented X 3 , appropriate affect , intact judgment and insight . -Lymphatic : no Lymphadenopathy . - musculoskeltal : Cervical Spine motor stregnth in the deltoid and biceps, normal right side , normal Left side motor stregnth biceps and the wrist extensors normal right side ,normal left side . motor stregnth in the triceps muscle . normal Right side , normal Left side deep tendon reflexes normal at the biceps , normal at Brachioradialis , normal at triceps. cervical facet loading test: Positive Bilaterally Spurling test= positive Right , positive left. Neck distraction test= positive Right , positive left. Vicky sign= positive right, positive left . Decrease range of motion of shoulder joints bilaterlly . Lumber spine moter stegnth lower extremities ,thigh and legs 5/5 Right side , 5/5 Left side Result MRI of the cervical spine without contrast multilevel spondylosis in the cervical spine and spinal stenosis at C4 5 and C5 6 Assessment and plan=1-cervical spinal stenosis. 2-cervical spondylosis with cervical facet arthropathy without myelopathy. Patient could benefit from repeate cervical epidural steroid injection at C6 7 In the future if she continued to have severe neck pain , and we should consider doing diagnostic medial branch block cervical Time with Patient: less than 30 PQRS Measure Charge Sheet Measure #130: Documentation of Current Meds in Medical Chart: Patient's medications documented in chart Measure #226: Tobacco Use: Screen & Cessation Intervention: Pt not a tobacco user Measure #111: Pneumonia Vaccination: Pneumococcal vaccine NOT administered or previously given Measure #47: Advance Care Plan: Advance care planning discussed & documented, pt chose/unable to give Measure #412: Opioid Treatment Agreement: No documentation of signed opioid treatment agreement Measure #408: Opioid Therapy Follow-up Evaluation: Patient had NO f/u eval minimum every 3 months during opioid therapy Measure #317: Preventitive Care & Scrn High Bld Press & F/U: Normal blood pressure, f/u not required Measure #128: Body Mass Index (BMI) Screening & Follow-up: BMI documented ABOVE normal parameters - f/u documented Measure #131: Pain Assessment & Follow-up: Pain positive & plan documented, Follow-up scheduled Measure #431: Unhealthy Alcohol Use Preventative Care & Scrn: Patient not ernée ntified as an unhealthy alcohol user PQRS Narrative: Objective - Vital Signs Vital signs: Vital Signs Temp 98.9 F 08/23/21 08:53 Pulse 74 08/23/21 08:53 Resp 18 08/23/21 08:53 BP 121/88 08/23/21 08:53 Pulse Ox 96 08/23/21 08:53
== END | disposition home or self-care (01) ==
LOC: PNWHC3 08:40
PROVIDERS: ATTEND Specialist
DX: M48.02 Spinal stenosis, cervical region (principal); M47.892 Other spondylosis, cervical region; M46.92 Unspecified inflammatory spondylopathy, cervical region
CPT/HCPCS: 99211

== ENCOUNTER 2021-10-14 07:34 | Day surgery (SDC) | payer MEDICAID ==
[2021-10-12 15:51] VITALS: BMI 40.2
[2021-10-14] MEDS ORDERED: LACTATED RINGERS 1,000 ML IV SCH (07:35)
[2021-10-14 08:01] VITALS: RESP 16; TEMP 97.9
[2021-10-14] MEDS ORDERED: LIDOCAINE 1% (10MG/ML) FOR IV START INTRADERMA ONE (08:08)
[2021-10-14 08:10] LABS: Glucose,Whole Blood 92 mg/dL (75-99)
[2021-10-14] MEDS ORDERED: IOPAMIDOL M200 10 ML VIAL ONE (08:29)
[2021-10-14] MEDS ORDERED: DEXAMETHASONE SOD PHOSPHATE 10 MG/ML 1 ML VIAL ONE (08:29)
[2021-10-14] MEDS ORDERED: MIDAZOLAM 2 MG/2 ML VIAL ONE (08:29)
[2021-10-14] MEDS ORDERED: .fentaNYL (PF) 50 MCG/ML 2 ML AMP ONE (08:29)
--- NOTE | 2021-10-14 08:41 | P.PCN ---
Date of Procedure: 10/14/21 Procedure(s) Performed: PROCEDURE 1. Cervical epidural steroid injection under fluoroscopic guidance, C 6-7 (fluoroscopy images available in the radiology department ) 2. Cervical epidurogram. PREOPERATIVE DIAGNOSIS: 1- Cervical spinal stenosis 2-cervical spondylosis with cervical Facet arthropathy without myelopathy POSTOPERATIVE DIAGNOSIS: : 1- Cervical spinal stenosis 2-cervical spondylosis with cervical Facet arthropathy without myelopathy ANESTHESIA: Local anesthesia with lidocaine 1 % , and moderate sedation, with Versed 2 mg ,and Fentanyl 100 mcg. EBL 0 PROCEDURE INDICATION: The patient with neck pain and radiculitis unresponsive to conservative treatment consents for procedure. PROCEDURE DESCRIPTION / TECHNIQUE: The patient was seen and identified in the preoperative area. Risks, benefits, complications, including but not limited to infections ,bleeding , allergic reactions to the medications ,and not complete pain releife, and alternatives were discussed with the patient, the patient agreed to proceed with the procedure and signed the consent. Patient was taken to the OR and time out was completed. The patient was placed in the prone position on the procedure table. A pillow was placed under the patients chest to increase the cervical interlaminar space. The cervical area was prepped and draped in the usual sterile fashion. Vital signs were closely monitored during the procedure. Conscious sedation was used during the procedure to decrease patients anxiety. Using anterior-posterior fluoroscopy, the C6-7 interlaminar space was identified and the skin over this site was marked and then infiltrated with 1% lidocaine subcutaneously. Subsequently, a 20-gauge 3-1/2-inch Tuohy epidural needle was inserted and advanced toward the epidural space by means of the ``hanging-drop technique and guided by AP and lateral fluoroscopy. The correct needle position in the epidural space was verified with the injection of 2 mL of the water soluble contrast dye Isovue-200 and observing an excellent epidurogram with the epidural spread of the dye, after negative aspiration for blood and CSF and in the absence of paresthesias. then, mixture containing 15 mg Dexamethasone and 2 ml of preservative-free normal saline injected and a washout of epidurogram was seen. Needle was withdrawn intact, skin was cleansed, and bandages were applied. Complications= none. Disposition= patient was placed in supine position and [place] [facility] [place] area in stable condition and there was no evidence of upper or lower extremity motor or sensory deficit after the procedure patient was discharged from recovery room after discharge criteria met and home discharge instructions was given by the staff and patient will follow with the pain clinic in 2-4 weeks
[2021-10-14] MEDS ORDERED: IV FLUID CONTINUATION 1,000 ML IV ONE (08:44)
[2021-10-14 09:00] VITALS: BP 109/75; PULSE 78
--- NOTE | 2021-10-15 08:27 | FL ---
Fluoroscopy INDICATION: Pain FINDINGS: Fluoroscopy time: 5 seconds. Images obtained: 1. IMPRESSIONS: 1. Documentation of fluoroscopy.
== END 2021-10-14 09:14 | disposition home or self-care (01) ==
LOC: ORPAIN 07:34
PROVIDERS: ATTEND Specialist
DX: M48.02 Spinal stenosis, cervical region (principal); M47.812 Spondylosis without myelopathy or radiculopathy, cervical region
CPT/HCPCS: 62321; 99152

== ENCOUNTER → 2021-11-03 | Outpatient (CLI) | payer MEDICAID, MEDICARE ==
[2021-11-03 09:58] VITALS: BP 112/73; PULSE 77; RESP 18; TEMP 98.1
--- NOTE | 2021-11-03 10:29 | P.PN ---
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, the intensity of the pain increased over time , patient had physical therapy for several months without any significant benefit, and she tried the home exercises ,and she continues to have severe pain, she tried the NSAID, Neurontin, [place], Tylenol, she continued to have severe pain, recently we have done cervical epidural steroid injections 3, she feels some improvement of her neck pain, but she continued to have s evere neck pain , she feels some weakness in the upper extremity bilaterally, she denies any fever or night sweats she denies any change in the bowel movements or urination Physical Examinations : -Constitutiona : Cooperative , not in acute distress . -HEENT : nech : supple , no Lymphadenopathy , normal thyroid size . : eyes : no ptosis , no icterus, no photophobia . - neurologic : Cranial nerve II to XII intact , no focal neurological deffecit . -psychatric : alert , oriented X 3 , appropriate affect , intact judgment and insight . -Lymphatic : no Lymphadenopathy . - musculoskeltal : Cervical Spine motor stregnth in the deltoid and biceps, normal right side , normal Left side motor stregnth biceps and the wrist extensors normal right side ,normal left side . motor stregnth in the triceps muscle . normal Right side , normal Left side deep tendon reflexes normal at the biceps , normal at Brachioradialis , normal at triceps. cervical facet loading test: Positive Bilaterally Spurling test= positive Right , positive left. Neck distraction test= positive Right , positive left. Vicky sign= positive right, positive left . Decrease range of motion of shoulder joints bilaterlly . Lumber spine moter stegnth lower extremities ,thigh and legs 5/5 Right side , 5/5 Left side Result MRI of the cervical spine without contrast multilevel spondylosis in the cervical spine and spinal stenosis at C4 5 and C5 6 Assessment and plan= 1-cervical spinal stenosis. 2-cervical spondylosis with cervical facet arthropathy without myelopathy. Patient here to have severe neck pain after cervical epidural steroid injections 3 Schimpf will be good candidate to have diagnostic medial branch block cervical C4 , C5 ,C6 bilaterally , possible RFA - PQRS measures = - Patient's medications are documented in the chart. -Tobacco use is positive, and counseling.Given. -Patient's has not received pneumococcal vaccine. -Advanced care planning discussed, patient not eligible. -Opiate contract not signed. -Pain positive and follow-up visit/procedure is scheduled. -Patient's blood pressure measured [ 112/73 ] , and documented in the record ,and patient will follow up with the primary care. -Patient's weight was measured and body mass index [ 41.2] above the,normal limits and counseling was done. and patient instructed to follow-up with the primary care physician. -Patient was not identified as an unhealthy alcohol user Time with Patient: less than 30 Objective - Vital Signs Vital signs: Vital Signs Temp 98.1 F 11/03/21 09:48 Pulse 77 11/03/21 09:48 Resp 18 11/03/21 09:48 BP 112/73 11/03/21 09:48 Pulse Ox 95 11/03/21 09:48 Intake & Output 11/02/21 11/03/21 11/03/21 18:59 06:59 18:59 Weight 98.883 kg
== END | disposition home or self-care (01) ==
LOC: PNWHC3 09:27
PROVIDERS: ATTEND Specialist
DX: M47.892 Other spondylosis, cervical region (principal); M48.02 Spinal stenosis, cervical region
CPT/HCPCS: 99211

== ENCOUNTER 2021-12-10 08:08 | Day surgery (SDC) | payer MEDICAID ==
[2021-12-08 15:40] VITALS: BMI 38.9
[2021-12-10] MEDS ORDERED: fentaNYL (PF) 50 MCG/ML 2 ML AMP ONE (08:43)
[2021-12-10] MEDS ORDERED: MIDAZOLAM 2 MG/2 ML VIAL ONE (08:43)
[2021-12-10] MEDS ORDERED: methylPREDNISolone ACETATE 40 MG/ML 1 ML VIAL ONE (08:43)
[2021-12-10] MEDS ORDERED: ROPIVACAINE 5MG/ML 20ML VIAL ONE (08:43)
[2021-12-10 08:44] LABS: Glucose,Whole Blood 103 mg/dL (75-99)
[2021-12-10 08:45] VITALS: TEMP 98.1
--- NOTE | 2021-12-10 09:12 | P.PCN ---
Date of Procedure: 12/10/21 Procedure(s) Performed: PREOPERATIVE DIAGNOSIS: Cervical Spondylosis with Facet Arthropathy.without myelopathy POSTOPERATIVE DIAGNOSIS: Cervical Spondylosis Facet Arthropathy. Without myelopathy PROCEDURES: Diagnostic Bilateral C4 , C5 , and C6 medial branch blocks, with fluoroscopic guidance (fluoroscopy images available in radiology department ) ( to target the facet joint at Bilateral C4- 5 , C5- 6 )#1 st ANESTHESIA: Monitored anesthesia care as per anesthesia department EBL: Minimal PROCEDURE INDICATION: The patient with neck pain secondary to cervical arthropathy unresponsive to more conservative treatments. PROCEDURE DESCRIPTION / TECHNIQUE: The patient was seen and identified in the preoperative area. Risks, benefits, complications, and alternatives were discussed with the patient, the patient agreed to proceed with the procedure and signed the consent. IV was started. Vital signs remained stable throughout the procedure. Patient was taken to the OR and time out was completed. The patient was placed in the prone position on the procedure table. A pillow was placed under the patients chest to increase the cervical interlaminar space. The cervical area was prepped and draped in the usual sterile fashion. Critical pause was taken. Vital signs were closely monitored during the procedure. Conscious sedation was used during the procedure to decrease patients anxiety. Using cross-table lateral fluoroscopy, the centroid of the trapezoid of right C4 , C5 and C6, was identified, marked, and localized with 1% lidocaine 1 ml at each level for skin and Sub Q infiltrations . Subsequently, a 22 G 3 spinal needle was advanced guided by fluoroscopy to the centroid of the trapezoid of Right C3, C4 , C5, C6 . [place] tip position was confirmed at the centroid of the trapezoids of Right C4 , C5 ,C6 with anteroposterior fluoroscopy. Subsequently, 1.5 ml of preservative-free Ropivacaine 0.5% mixed with Depo- Medrol 20 mg and half ml of the mixture was injected after negative aspiration for blood and CSF. [place] was then removed intact the same procedure was repeated at the left , C4 , C5 , and C6 levels. COMPLICATIONS: No acute complications. DISPOSITION / PLANS: The patient was placed in a supine position and transferred to the recovery area in a stable condition for observation and was discharged from the recovery room after meeting discharge criteria. Home discharge instructions given to the patient by the staff. The patient was reexamined prior to discharge. The patient will schedule a follow up in the clinic in 2-4 weeks.
[2021-12-10] MEDS ORDERED: IV FLUID CONTINUATION 1,000 ML IV ONE (09:15)
[2021-12-10 09:33] VITALS: BP 109/71; PULSE 70; RESP 18
--- NOTE | 2021-12-10 09:48 | FL ---
EXAMINATION TYPE: FL guided pain mgmt statistic DATE OF EXAM: 12/10/2021 HISTORY: Pain bilat ceervical facet block 3 levels, 18sec fl time
== END 2021-12-10 09:46 | disposition home or self-care (01) ==
LOC: ORPAIN 08:08
PROVIDERS: ATTEND Specialist
DX: M47.812 Spondylosis without myelopathy or radiculopathy, cervical region (principal); I10 Essential (primary) hypertension; E78.5 Hyperlipidemia, unspecified; J45.909 Unspecified asthma, uncomplicated; M19.90 Unspecified osteoarthritis, unspecified site; F17.210 Nicotine dependence, cigarettes, uncomplicated; M79.7 Fibromyalgia; K21.9 Gastro-esophageal reflux disease without esophagitis; Z79.1 Long term (current) use of non-steroidal anti-inflammatories (NSAID); Z79.891 Long term (current) use of opiate analgesic; Z79.899 Other long term (current) drug therapy; Z88.0 Allergy status to penicillin; Z88.8 Allergy status to other drugs, medicaments and biological substances
CPT/HCPCS: 64490; 64491; J2250; J1030; J3010; J2795

== ENCOUNTER 2022-01-21 10:04 | Day surgery (SDC) | payer MEDICAID ==
[2022-01-19 12:39] VITALS: BMI 40.4
[~2022-01-21 10:04] MED LIST changes: +LIDOCAINE 1% (10MG/ML) FOR IV START INTRADERMA PRN
[2022-01-21 10:29] VITALS: TEMP 97.6
[2022-01-21 10:42] LABS: Glucose,Whole Blood 117 mg/dL (75-99)
[2022-01-21] MEDS ORDERED: ROPIVACAINE 5MG/ML 20ML VIAL ONE (11:09)
[2022-01-21] MEDS ORDERED: MIDAZOLAM 2 MG/2 ML VIAL ONE (11:09)
[2022-01-21] MEDS ORDERED: methylPREDNISolone ACETATE 40 MG/ML 1 ML VIAL ONE (11:09)
--- NOTE | 2022-01-21 11:38 | P.PCN ---
Date of Procedure: 01/21/22 Procedure(s) Performed: PREOPERATIVE DIAGNOSIS: Cervical Spondylosis with Facet Arthropathy.without myelopathy POSTOPERATIVE DIAGNOSIS: Cervical Spondylosis Facet Arthropathy. Without myelopathy PROCEDURES: Diagnostic Bilateral C4 , C5 , and C6 medial branch blocks, with fluoroscopic guidance (fluoroscopy images available in radiology department ) ( to target the facet joint at Bilateral C4- 5 , C5- 6 )#2nd ANESTHESIA: Monitored anesthesia care as per anesthesia department EBL: Minimal PROCEDURE INDICATION: The patient with neck pain secondary to cervical arthropathy unresponsive to more conservative treatments. PROCEDURE DESCRIPTION / TECHNIQUE: The patient was seen and identified in the preoperative area. Risks, benefits, complications, and alternatives were discussed with the patient, the patient agreed to proceed with the procedure and signed the consent. IV was started. Vital signs remained stable throughout the procedure. Patient was taken to the OR and time out was completed. The patient was placed in the prone position on the procedure table. A pillow was placed under the patients chest to increase the cervical interlaminar space. The cervical area was prepped and draped in the usual sterile fashion. Critical pause was taken. Vital signs were closely monitored during the procedure. Conscious sedation was used during the procedure to decrease patients anxiety. Using cross-table lateral fluoroscopy, the centroid of the trapezoid of right C4 , C5 and C6, was identified, marked, and localized with 1% lidocaine 1 ml at each level for skin and Sub Q infiltrations . Subsequently, a 25 G 3 spinal needle was advanced guided by fluoroscopy to the centroid of the trapezoid of Right C4 , C5, C6 . [place] tip position was confirmed at the centroid of the trapezoids of Right C4 , C5 ,C6 with anteroposterior fluoroscopy. Subsequently, 1.5 ml of preservative-free Ropivacaine 0.5% mixed with Depo- Medrol 20 mg and half ml of the mixture was injected after negative aspiration for blood and CSF. [place] was then removed intact the same procedure was repeated at the left , C4 , C5 , and C6 levels. COMPLICATIONS: No acute complications. DISPOSITION / PLANS: The patient was placed in a supine position and transferred to the recovery area in a stable condition for observation and was discharged from the recovery room after meeting discharge criteria. Home discharge instructions given to the patient by the staff. The patient was reexamined prior to discharge. The patient will schedule a follow up in the clinic in 2-4 weeks.
[2022-01-21] MEDS ORDERED: IV FLUID CONTINUATION 1,000 ML IV ONE ×2 (11:44)
[2022-01-21 11:49] VITALS: RESP 16
--- NOTE | 2022-01-21 11:50 | FL ---
EXAMINATION TYPE: FL guided pain mgmt statistic DATE OF EXAM: 01/21/2022 CLINICAL HISTORY: Neck pain. TECHNIQUE: Fluoroscopy. COMPARISON: None. FINDINGS: Fluoroscopic guidance was provided during pain relief procedure performed by Dr. Salazar . A total of 23 seconds of fluoroscopic time was utilized during the procedure and 4 spot images are acquired. Images acquired shows needle localization at multiple levels in the cervical spine. IMPRESSION: As Above.
[2022-01-21 12:05] VITALS: BP 115/76; PULSE 53
== END 2022-01-21 13:01 | disposition home or self-care (01) ==
LOC: ORPAIN 10:04
PROVIDERS: ATTEND Specialist
DX: M47.812 Spondylosis without myelopathy or radiculopathy, cervical region (principal); I10 Essential (primary) hypertension; E78.5 Hyperlipidemia, unspecified; F17.200 Nicotine dependence, unspecified, uncomplicated; M79.7 Fibromyalgia; K21.9 Gastro-esophageal reflux disease without esophagitis; Z88.2 Allergy status to sulfonamides; Z88.8 Allergy status to other drugs, medicaments and biological substances; Z98.891 History of uterine scar from previous surgery; Z98.890 Other specified postprocedural states
CPT/HCPCS: 64490; 64491; J2250; J1030; J2795

== ENCOUNTER → 2022-02-07 | Outpatient (CLI) | payer MEDICAID ==
[2022-02-07 09:05] VITALS: BP 100/66; PULSE 77; RESP 18; TEMP 98.4
--- NOTE | 2022-02-07 09:12 | P.PN ---
Subjective Progress Note Date: 02/07/22 Principal diagnosis: A 66 yr old female with a history of severe and chronic neck pain secondary to cervical degenerative disc diseases and spondylosis presents today for evaluation status post facet blocks of the medial branches C4-C5, C5-C6 #2. Patient states she expressed 50% pain relief for 3 days status post procedure. Pain level is currently at 4-10 intensity, dull, achy in character in the middle aspect of the cervical spine with radiation pain to the bilateral s houlders. Pain escalates as high as 9 out of 10 with rotation, extension and lifting. Pain is alleviated with medications, topical Biofreeze, injections, heat, physical therapy in May 2021, home exercise regimen, massage therapy twice a month and rest. Interventional pain procedures completed include Lumbar RFA years ago Patient is currently on Haught[place] from Dr Boogie. OTC Tylenol & OTC Motrin. Patient denies any side effects of the medication(s), denies excessive drowsiness or sleepiness, denies suicidal ideation and reports that the current pain medication is helping to control the pain and improve activities of daily living. Patient denies any motor or sensory deficits. Patient denies any fever or night sweats, denies any change in the bowel movements or urination. Physical Examination: -Constitutional: Cooperative. Not in acute distress . -HEENT: Neck is supple. No lymphadenopathy. No thyromegaly. Normal thyroid size. Eyes: No ptosis , no icterus, no photophobia. ENT: No auditory deficits. Normal oropharynx. No Thrush. - Respiratory: Chest clear to auscultations bilaterally. No wheezing. No rhonchi. - Cardiovascular: Regular rate and rhythm. S1 / S2 , no S3 , no S4. - Gastrointestinal: Abdomen soft no tenderness. Bowel sounds positive in all four quadrants. No organomegaly. - Genitourinary: Deferred. - Neurologic: Cranial nerve II to XII intact. No focal neurological deficits. - Psychatric: Alert & oriented x 3. Matching mood & appropriate affect. Judgment and insight intact. - Lymphatic: No Lymphadenopathy. - Musculoskeletal: Cervical spine: Muscle bulk/ tone/ strength in the bilateral upper extremities normal. Facet loading test cervical area positive. Lumbar spine: Motor bulk/ tone/ strength lower extremities , thigh and legs : 5/5 Deep tendon reflexes : Normal Knee Jerk. Normal Ankle Jerk . Vertebral body tenderness to palpation over Lumbar Facet Loading Test positive Straight Leg Raise: positive at 30 degrees right side/ left side Gaenslen's Test positive Sacral spine : Severe tenderness over the Sacroiliac joint: right side / left side Range of motion: Flexion of the lumbar spine <60 degrees Range of motion: Extension of the lumbar spine <20 degrees Gaenslen's Test positive [place] Maria test: positive right side / left side Assessment and plan: Chronic neck pain secondary to cervical degenerative disc disease , spondylosis with facet arthropathy without myelopathy Recommendation of bilateral RFA C4-C5, C5-C6. Risks, benefits procedure discussed patient verbalized understanding. Admits to medical history diabetes with glimmer pride use. Denies anticoagulant use. Protocol for discontinuation/ continuation of medications nir procedure discussed. All patient questions answered MAPS reviewed and it was appropriate. I have spent 31 minutes on patient care today. Dr Salazar was available by phone for the evaluation of this patient. The time was used to review the medical records including relevant urine studies and Prescription history (MAPs), review of the available imaging, evaluation and examination of the patient, coordination of care with the medical staff and if applicable referring physicians, as well as creation of the medical record Objective - Vital Signs Vital signs: Vital Signs Temp 98.4 F 02/07/22 08:59 Pulse 77 02/07/22 08:59 Resp 18 02/07/22 08:59 BP 100/66 02/07/22 08:59 Pulse Ox 97 02/07/22 08:59 PQRS Measure Charge Sheet Mode of Arrival: Ambulatory - Pain Location Neck Non-Pharmacological Interventions: Chiropractic Treatment, Heat, Home Exercise, Inactivity, Massage, Physical Therapy, Position/Reposition, Stretching Pharmacological Interventions: Block, PRN Medication, Topical Medication PQRS Narrative: Smoking Status Current every day smoker Blood Pressure 100/66 Pain Intensity [Neck] 4 Scale Used Numeric (1 - 10) Hx Alcohol Use (MH) Yes: occ Home Medications: Ambulatory Orders Atorvastatin [Lipitor] 20 mg PO HS 01/31/19 Doxepin [SINEquan] 10 mg PO HS 01/31/19 Gabapentin [Neurontin] 600 mg PO HS 01/31/19 Glimepiride [Amaryl] 1 mg PO BID 01/31/19 HYDROcodone/APAP 10-325MG [Haughton 10-325] 1 tab PO Q6HR PRN 01/31/19 Ibuprofen 200 mg PO Q6H PRN 01/31/19 Losartan Potassium [Cozaar] 100 mg PO HS 01/31/19 Pantoprazole Sodium [Protonix] 40 mg PO QAM 01/31/19 amLODIPine [Norvasc] 5 mg PO HS 01/31/19 Acetaminophen [Tylenol] 2 tab PO Q6H PRN 04/03/19 Citalopram Hydrobromide [Citalopram HBr] 40 mg PO DAILY 08/19/21 Triamterene/Hydrochlorothiazid [Triamterene-Hctz 37.5-25 mg Tb] 2 tab PO DAILY 12/08/21
== END | disposition home or self-care (01) ==
LOC: PNWHC3 08:22
PROVIDERS: ATTEND Specialist
DX: M47.892 Other spondylosis, cervical region (principal); M50.30 Other cervical disc degeneration, unspecified cervical region
CPT/HCPCS: 99211

== ENCOUNTER → 2022-02-25 | Day surgery (SDC) | payer MEDICAID ==
[~2022-02-25] MED LIST changes: +IV FLUID CONTINUATION 700 ML IV ONE; +LACTATED RINGERS 1,000 ML IV ONE; -LACTATED RINGERS 1,000 ML IV SCH; -LIDOCAINE 1% (10MG/ML) FOR IV START INTRADERMA PRN; +MIDAZOLAM 2 MG/2 ML VIAL ONE; +ROPIVACAINE 5MG/ML 20ML VIAL ONE; +fentaNYL (PF) 50 MCG/ML 2 ML AMP ONE; +methylPREDNISolone ACETATE 40 MG/ML 1 ML VIAL ONE
[2022-02-25 07:36] VITALS: TEMP 97.3
[2022-02-25 07:40] LABS: Glucose,Whole Blood 101 mg/dL (75-99)
--- NOTE | 2022-02-25 08:32 | P.PCN ---
Date of Procedure: 02/25/22 Procedure(s) Performed: PREOPERATIVE DIAGNOSIS: Cervical spondylosis with Facet Arthropathy without myelopathy. POSTOPERATIVE DIAGNOSIS: Cervical spondylosis with Facet Arthropathy without myelopathy. PROCEDURES: Radiofrequency thermocoagulation, Right C4, C5, C6 medial branch with Fluroscopy Guidence(fluoroscopy was available in Radiology department ) (to denervate the facet joint at Right C4- 5 , C5- 6 ) ANESTHESIA: Monitored anesthesia care as per anesthesia department . EBL: Minimal PROCEDURE INDICATION: The patient with neck pain secondary to cervical arthropathy who had more than 50% relief of her pain with previous diagnostic cervical medial branch block. PROCEDURE DESCRIPTION / TECHNIQUE: The patient was seen and identified in the preoperative area. Risks, benefits, complications, and alternatives were discussed with the patient, the patient agreed to proceed with the procedure and signed the consent. IV was started. Vital signs remained stable throughout the procedure. Patient was taken to the OR and time out was completed. The patient was placed in the Lateral position on the procedure table( right side up ). A pillow was placed under the patients chest to increase the cervical interlaminar space. The cervical area was prepped and draped in the usual sterile fashion. Critical pause was taken. Vital signs were closely monitored during the procedure. Conscious sedation was used during the procedure to decrease patients anxiety. Using cross-table lateral fluoroscopy, the centroid of the trapezoid of right C4, C5, and C6 were identified, marked, and localized with 1% lidocaine. Subsequently, a 20 [id number] radiofrequency cannula with a 10-mm active tip was advanced guided by fluoroscopy to the centroid of the trapezoid of right C4, C5, and C6 . Needle tip position was confirmed at the centroid of the trapezoids of right C4, C5, and C6 with anteroposterior fluoroscopy. Each site then underwent sensory testing at 50 Hz and 0 to 1 volt and motor testing at 2 Hz and 0 to 3 volt with local stimulation, but no radicular symptoms down the arm. Thereafter each sites underwent radiofrequency thermocoagulation at 80 degrees celsius for 90 seconds after injecting 0.5 ml of PF Ropivacaine 0.5 %. After thermocoagulation, 1 ml of the block solution containing Depo-Medrol 40 mg and 5 mL of preservative-free normal saline was injected at the right C4, C5, and C6 levels after negative aspiration of CSF and blood and with no paresthesias. Cannulas were retracted while injecting lidocaine 1% until the needle is out. Skin was cleansed and bandages were applied. COMPLICATIONS: No acute complications. DISPOSITION / PLANS: The patient was placed in a supine position and transferred to the recovery area in a stable condition for observation and was discharged from the recovery room after meeting discharge criteria. Home discharge instructions given to the patient by the staff. The patient was reexamined prior to discharge. The patient will scheduled to have an RFA of the left side. note= patient was scheduled to have RFA cervical facet bilateral at C4 5 ,and C5 6, I positioned the patient in prone position, I was not able to visualize C5 or C6 vertebra, then patient placed in supine position, also I was not able to visualize C5 or C6 vertebra, then patient placed in lateral position, right side up, and I was able to visualize C4 ,C5 and C6 , I was planning to do bilateral RFA, but during the procedure,the patient was complaining of numbness in her both upper extremity, while we were doing the sensory and motor testing, for this reason,it will be safer, to do one side today ,and do the other side later.
[2022-02-25 08:36] VITALS: RESP 16
[2022-02-25 08:48] VITALS: BP 119/77; PULSE 63
--- NOTE | 2022-02-25 14:49 | FL ---
Fluoroscopy INDICATION: Pain FINDINGS: Fluoroscopy time: 29 seconds. Images obtained: 3. IMPRESSIONS: 1. Documentation of fluoroscopy.
== END | disposition home or self-care (01) ==
LOC: ORPAIN 07:01
PROVIDERS: ATTEND Specialist
DX: M47.812 Spondylosis without myelopathy or radiculopathy, cervical region (principal); I10 Essential (primary) hypertension; E11.9 Type 2 diabetes mellitus without complications; F17.290 Nicotine dependence, other tobacco product, uncomplicated; K21.9 Gastro-esophageal reflux disease without esophagitis; Z79.899 Other long term (current) drug therapy; Z88.2 Allergy status to sulfonamides; Z88.8 Allergy status to other drugs, medicaments and biological substances
CPT/HCPCS: 64633; 64634; J2250; J1030; J3010; J2795

== ENCOUNTER → 2022-03-08 | Outpatient (CLI) | payer MEDICAID ==
[2022-03-08 15:19] LABS: Basophils # (A) 0.05 X 10*3/uL (0.00-0.10); Basophils % (A) 0.5 %; Eosinophils # (A) 0.24 X 10*3/uL (0.04-0.35); Eosinophils % (A) 2.2 %; HCT 38.6 % (37.2-46.3); Immature Grans, Automated 0.5 %; Lymphocytes # (A) 2.21 X 10*3/uL (0.90-5.00); Lymphocytes % (A) 20.7 %; MCH 27.7 pg (27.0-32.0); MCHC 31.1 g/dL (32.0-37.0); MCV 89.1 fL (80.0-97.0); Monocytes # (A) 0.71 X 10*3/uL (0.20-1.00); Monocytes % (A) 6.6 %; NRBC Per 100 WBC 0 /100 WBCS (0.0-0.0); Neutrophils # (A) 7.43 X 10*3/uL (1.80-7.70); Neutrophils % (A) 69.5 %; Platelet Count 398 X 10*3/uL (140-440); RBC 4.33 X 10*6/uL (4.10-5.20); RDW 15.5 % (11.5-14.5); WBC 10.69 X 10*3/uL (4.50-10.00)
[2022-03-08 15:36] LABS: ALT 10 U/L (8-44); AST 15 U/L (13-35); African American GFR (CKD) 54.9 (60.0-200.0); Albumin 4.2 g/dL (3.8-4.9); Albumin/Globulin Ratio 1.31 (1.60-3.17); Alkaline Phosphatase 104 U/L (41-126); BUN/Creat Ratio 17.75 Ratio (12.00-20.00); Blood Urea Nitrogen 21.3 mg/dL (9.0-27.0); Calcium 9.5 mg/dL (8.7-10.3); Carbon Dioxide 29.9 mmol/L (20.0-27.5); Chloride 98 mmol/L (96-109); Chol/HDL Ratio 4.63 Ratio; Globulin 3.2 g/dL (1.6-3.3); Glucose 73 mg/dL (70-110); LDL Cholesterol,Calculated 146.4 mg/dL (0.0-131.0); Non-African American GFR(CKD) 47.4 (60.0-200.0); Potassium 3.2 mmol/L (3.5-5.5); Sodium 141 mmol/L (135-145); Total Protein 7.4 g/dL (6.2-8.2)
== END | disposition home or self-care (01) ==
LOC: LABWHC1 08:14
PROVIDERS: ATTEND Nurse Practitioner Family
DX: E11.9 Type 2 diabetes mellitus without complications (principal)
CPT/HCPCS: 36415; 80053; 80061; 83036; 84439; 84443; 85025

== ENCOUNTER 2022-03-11 06:16 | Day surgery (SDC) | payer MEDICAID ==
[2022-03-10 13:09] VITALS: BMI 39.4
[2022-03-11] MEDS ORDERED: LACTATED RINGERS 1,000 ML IV ONE (07:07)
[2022-03-11 07:08] VITALS: TEMP 97.5
[2022-03-11 07:19] LABS: Glucose,Whole Blood 95 mg/dL (75-99)
[2022-03-11] MEDS ORDERED: LACTATED RINGERS 1,000 ML IV SCH (07:30)
[2022-03-11] MEDS ORDERED: MIDAZOLAM 2 MG/2 ML VIAL ONE (07:38)
[2022-03-11] MEDS ORDERED: DEXAMETHASONE SOD PHOSPHATE 10 MG/ML 1 ML VIAL ONE (07:38)
[2022-03-11] MEDS ORDERED: fentaNYL (PF) 50 MCG/ML 2 ML AMP ONE (07:38)
[2022-03-11] MEDS ORDERED: ROPIVACAINE 5MG/ML 20ML VIAL ONE (07:38)
--- NOTE | 2022-03-11 08:10 | P.PCN ---
Date of Procedure: 03/11/22 Description of Procedure: PREOPERATIVE DIAGNOSIS: Cervical Facet syndrome /cervical spondylosis. POSTOPERATIVE DIAGNOSIS: Cervical Facet syndrome /cervical spondylosis. PROCEDURES: Left Radiofrequency thermocoagulation of C4-C5, and C5-C6 medial branches, with fluoroscopic guidance, SURGEON: Alona Vaca ANESTHESIA: Local , and IV sedation: Versed 2mg , and [id number] mcg EBL: None Specimen removed: None Fluoroscopic image: Saved to electronic medical records. PROCEDURE INDICATION: The patient returns for cervical RFTC following previous positive diagnostic nerve blocks. Patient tried conservative therapy with marginal pain relief. PROCEDURE DESCRIPTION: The patient was seen and identified in the preoperative area. Risks, benefits, complications, and alternatives were discussed with the patient. The patient agreed to pursue with the procedure and signed the consent. IV was started and vital signs were stable. Patient was taken to the procedure room and time out was completed. The patient was placed in the prone position on the procedure table and cervical area was prepped with ChloraPrep 2 and draped in the usual sterile fashion. Critical pause was taken. Vital signs were closely monitored during the procedure. Using AP fluoroscopy, the waists of lateral margins of C4, C5, and C6 were identified and localized with 1 mL of 1% lidocaine. Used 20 [id number] radiofrequency cannula with a 10-mm active tip. Using the posterior approach, radiofrequency cannulas were guided by anterior posterior fluoroscopy to the waists of the lateral masses of C4, C5, and C6. Needle tip position was confirmed at the centroid of the trapezoids of C4, C5, and C6 with lateral fluor oscopy. Each site then underwent motor testing was done at 2 Hz and 0 to 2.5 volt with local stimulation, but no radicular symptoms down the arm. After negative aspiration for blood and CSF , 0.5 mill of block solution were given, and then C3, C4,C5 and C6 sites underwent radiofrequency thermocoagulation at 80 degrees celsius for 90 seconds. After thermocoagulation, the C4, C5, and C6 underwent injection of 0.5 mL of block solution after negative aspiration of CSF and blood and with no paresthesias. Block solution contained 10 MG of dexamethasone and 3 mL of preservative-free ropivacaine 0. 5%. Cannulas were retracted approximately 1 cm and then upon further withdrawal of the needles, the skin was infiltrated with 1 mL of 0.5% ropivacaine at each level. Skin was cleansed and bandages were applied. COMPLICATIONS: None. DISPOSITION / PLANS: The patient was placed in a supine position and transferred to the recovery area in a stable condition for observation and was discharged from the recovery room after meeting discharge criteria. Home discharge instructions given to the patient by the staff. The patient was reexamined prior to discharge. The patient will schedule a left side cervical radiofrequency ablation in 4 weeks.
[2022-03-11] MEDS ORDERED: IV FLUID CONTINUATION 600 ML IV ONE (08:13)
--- NOTE | 2022-03-11 08:20 | FL ---
Fluoroscopy History: M50.30 OTHER CERVICAL DDD,M48.02,M54.12 M50.30 OTHER CERVICAL DDD,M48.02,M54.12
[2022-03-11 08:41] VITALS: BP 119/57; PULSE 60; RESP 20
== END 2022-03-11 08:57 | disposition home or self-care (01) ==
LOC: ORPAIN 06:16
DX: M47.812 Spondylosis without myelopathy or radiculopathy, cervical region (principal)
CPT/HCPCS: 64633; 64634; J2250; J1100; J3010; J2795; 99211

== ENCOUNTER → 2022-05-18 | Outpatient (CLI) | payer MEDICAID ==
[2022-05-18 13:00] VITALS: BP 110/77; PULSE 75; RESP 18; TEMP 98
--- NOTE | 2022-05-18 13:26 | P.PAINPG ---
Objective - Vital Signs Vital signs: Vital Signs Temp 98.0 F 05/18/22 12:50 Pulse 75 05/18/22 12:50 Resp 18 05/18/22 12:50 BP 110/77 05/18/22 12:50 Pulse Ox 97 05/18/22 12:50 FiO2 Intake & Output 05/17/22 05/18/22 05/18/22 18:59 06:59 18:59 Weight 94.801 kg PQRS Measure Charge Sheet Mode of Arrival: Ambulatory Comment: A 66 yr old female with a history of severe and chronic low back pain secondary to lumbar degenerative disc diseases and lumbar spondylosis with facet arthropathy presents today for evaluation of RFA L C4-C5, C5-C6. She states she experienced 50% pain relief s/p procedure. Pain level is currently at /10. Pain is from her BL shoulders, intermittent, sharp/ shooting towards the UEs. Pain is provoked by lifting and overhead reaching. Pain is alleviated with medications (Steedman, Tylenol Arthritis, Ibuprofen), topicals, heat, PT in May 2021 for 6 wks, currently receiving massage therapy semi monthly, chiropractic treatments last in April 2021 monthly, repositioning, home based stretching regimen and rest. Interventional pain procedures completed include L RFA C4-C5, C5-C6 Patient is currently on Steedman, Tylenol Arthritis, Ibuprofen Patient denies any side effects of the medication(s), denies excessive drowsiness or sleepiness, denies suicidal ideation and reports that the current pain medication is helping to control the pain and improve activities of daily living. Patient denies any motor or sensory deficits. Patient denies any fever or night sweats, denies any change in the bowel movements or urination. Physical Examination: -Constitutional: Cooperative. Not in acute distress . - Neurologic: Cranial nerve II to XII intact. No focal neurological deficits. - Psychatric: Alert & oriented x 3. Matching mood & appropriate affect. Judgment and insight intact. - Musculoskeletal: Cervical spine: Muscle bulk/ tone/ strength in the bilateral upper extremities normal Vertebral body tenderness to palpation over Spurling test positive L>R Distraction test positive Facet loading test positive Thoracic spine Muscle bulk / tone/ strength in the bilateral paraspinal muscles normal Vertebral body tender to palpation over Facet loading test positive Lumbar spine: Motor bulk/ tone/ strength lower extremities , thigh and legs : 5/5 Deep tendon reflexes : Normal Knee Jerk. Normal Ankle Jerk . Vertebral body tenderness to palpation over Lumbar Facet Loading Test positive Straight Leg Raise: positive at 30 degrees right side/ left side Gaenslen's Test positive Sacral spine : Severe tenderness over the Sacroiliac joint: right side / left side Range of motion: Flexion of the lumbar spine <60 degrees Range of motion: Extension of the lumbar spine <20 degrees Gaenslen's Test positive Joseph's Test positive Rosa Maria test: positive right side / left side Thigh Thrust Test Sacral Thrust Test Assessment and plan: Chronic low back pain secondary to lumbar degenerative disc disease , lumbar spondylosis with facet arthropathy without myelopathy Pt exhibited satisfactory pain relief with the L RFA C4-C5, C5-C6 procedure. She will follow up with Dr Raygoza and Dr Ascencio for the time being and will return to our office on an as needed basis. Risks, benefits of procedure discussed and pt verbalized understanding. Denies anticoagulant use or medical history of diabetes. All patient questions answered MAPS reviewed and it was appropriate. I have spent less than 30 minutes on patient care today. Dr Salazar was available by phone for the evaluation of this patient. The time was used to review the medical records including relevant urine studies and Prescription history (MAPs), review of the available imaging, evaluation and examination of the patient, coordination of care with the medical staff and if applicable referring physicians, as well as creation of the medical record - Pain Location Bilateral Arm Non-Pharmacological Interventions: Chiropractic Treatment, Heat, Inactivity, Massage, Physical Therapy, Stretching Pharmacological Interventions: Block, PRN Medication, Scheduled Medication, Topical Medication PQRS Narrative: Smoking Status Current every day smoker Blood Pressure 110/77 Pain Intensity [Bilateral Arm] 3 Scale Used Numeric (1 - 10) Hx Alcohol Use (MH) Yes: occ Home Medications: Ambulatory Orders Atorvastatin [Lipitor] 20 mg PO HS 01/31/19 Doxepin [SINEquan] 10 mg PO HS 01/31/19 Gabapentin [Neurontin] 600 mg PO HS 01/31/19 Glimepiride [Amaryl] 1 mg PO BID 01/31/19 HYDROcodone/APAP 10-325MG [Steedman 10-325] 1 tab PO Q6HR PRN 01/31/19 Ibuprofen 200 mg PO Q6H PRN 01/31/19 Losartan Potassium [Cozaar] 100 mg PO HS 01/31/19 Pantoprazole Sodium [Protonix] 40 mg PO QAM 01/31/19 amLODIPine [Norvasc] 5 mg PO HS 01/31/19 Acetaminophen [Tylenol] 2 tab PO Q6H PRN 04/03/19 Citalopram Hydrobromide [Citalopram HBr] 40 mg PO DAILY 08/19/21 Triamterene/Hydrochlorothiazid [Triamterene-Hctz 37.5-25 mg Tb] 2 tab PO DAILY 12/08/21 Controlled Substance Measures - Controlled Substance Measures Is patient prescribed a controlled substance at discharge?: No
== END ==
LOC: PNWHC3 12:35
PROVIDERS: ATTEND Specialist
DX: M47.816 Spondylosis without myelopathy or radiculopathy, lumbar region (principal); M51.36 Other intervertebral disc degeneration, lumbar region; G89.29 Other chronic pain; F17.200 Nicotine dependence, unspecified, uncomplicated; Z88.8 Allergy status to other drugs, medicaments and biological substances; Z88.2 Allergy status to sulfonamides
CPT/HCPCS: 99211

== ENCOUNTER → 2022-07-20 | Outpatient (CLI) | payer MEDICAID ==
[2022-07-20 16:20] LABS: Basophils # (A) 0.05 X 10*3/uL (0.00-0.10); Basophils % (A) 0.6 %; Eosinophils # (A) 0.21 X 10*3/uL (0.04-0.35); Eosinophils % (A) 2.7 %; HCT 36.5 % (37.2-46.3); HGB 11.5 g/dL (12.0-15.0); Immature Grans, Automated 0.3 %; Lymphocytes # (A) 1.85 X 10*3/uL (0.90-5.00); Lymphocytes % (A) 23.5 %; MCH 27.4 pg (27.0-32.0); MCHC 31.5 g/dL (32.0-37.0); MCV 87.1 fL (80.0-97.0); Mean Platelet Volume 11.3 fL (9.5-12.2); Monocytes # (A) 0.67 X 10*3/uL (0.20-1.00); Monocytes % (A) 8.5 %; NRBC Per 100 WBC 0 /100 WBCS (0.0-0.0); Neutrophils # (A) 5.08 X 10*3/uL (1.80-7.70); Neutrophils % (A) 64.4 %; Platelet Count 379 X 10*3/uL (140-440); RBC 4.19 X 10*6/uL (4.10-5.20); RDW 16.2 % (11.5-14.5); WBC 7.88 X 10*3/uL (4.50-10.00)
[2022-07-20 16:26] LABS: ALT 13 U/L (8-44); AST 16 U/L (13-35); African American GFR (CKD) 46.8 (60.0-200.0); Albumin/Globulin Ratio 1.53 (1.60-3.17); Alkaline Phosphatase 112 U/L (41-126); BUN/Creat Ratio 15.04 Ratio (12.00-20.00); Blood Urea Nitrogen 20.6 mg/dL (9.0-27.0); Carbon Dioxide 29.4 mmol/L (20.0-27.5); Chloride 101 mmol/L (96-109); Globulin 2.6 g/dL (1.6-3.3); Glucose 83 mg/dL (70-110); LDL Cholesterol,Calculated 125.9 mg/dL (0.0-131.0); Non-African American GFR(CKD) 40.4 (60.0-200.0); Potassium 3.4 mmol/L (3.5-5.5); Sodium 144 mmol/L (135-145); Total Protein 6.6 g/dL (6.2-8.2)
== END | disposition home or self-care (01) ==
LOC: LABWHC1 08:10
PROVIDERS: ATTEND Internal Medicine Geriatric Medicine
DX: N18.9 Chronic kidney disease, unspecified (principal); E78.2 Mixed hyperlipidemia; E11.9 Type 2 diabetes mellitus without complications; G62.9 Polyneuropathy, unspecified
CPT/HCPCS: 36415; 80053; 80061; 83036; 84443; 85025

== ENCOUNTER → 2022-12-05 | Outpatient (CLI) | payer MEDICAID ==
--- NOTE | 2022-12-05 07:29 | US ---
EXAMINATION TYPE: US duplex aorta DATE OF EXAM: 12/05/2022 COMPARISON: NONE CLINICAL HISTORY: I71.40 ABDOMINAL AORTIC ANEURYSM wo rupture unsp. TECHNIQUE: Multiple sonographic images of the abdominal aorta are obtained. FINDINGS: EXAM MEASUREMENTS: Abdominal Aorta: Proximal: 2.0cm Mid: 1.5cm Distal: 1.4cm Bifurcation: Right: 1.2cm Left:0.9cm Normal color Doppler flow identified. IMPRESSION: No ultrasound evidence for abdominal aortic aneurysm.
== END | disposition home or self-care (01) ==
LOC: RADUSWWP 07:01
PROVIDERS: ATTEND Internal Medicine Geriatric Medicine
DX: I71.40 Abdominal aortic aneurysm, without rupture, unspecified (principal)
CPT/HCPCS: 93979

== ENCOUNTER → 2024-07-19 | Outpatient (CLI) | payer BC ==
[2024-07-19 19:04] LABS: Basophils # (A) 0.06 X 10*3/uL (0.00-0.10); Basophils % (A) 0.8 %; Eosinophils # (A) 0.26 X 10*3/uL (0.04-0.35); Eosinophils % (A) 3.5 %; HCT 40.6 % (37.2-46.3); HGB 12.9 g/dL (12.0-15.0); Lymphocytes # (A) 1.58 X 10*3/uL (0.90-5.00); Lymphocytes % (A) 21.4 %; MCH 27.7 pg (27.0-32.0); MCHC 31.8 g/dL (32.0-37.0); MCV 87.3 FL (80.0-97.0); Mean Platelet Volume 10.8 FL (9.5-12.2); Monocytes # (A) 0.46 X 10*3/uL (0.20-1.00); Monocytes % (A) 6.2 %; NRBC Per 100 WBC 0 X 10*3/uL (0.00-0.01); Neutrophils # (A) 4.98 X 10*3/uL (1.80-7.70); Neutrophils % (A) 67.7 %; Platelet Count 407 X 10*3/uL (140-440); RBC 4.65 X 10*6/uL (4.10-5.20); RDW 15.5 % (11.5-14.5); WBC 7.37 X 10*3/uL (4.50-10.00)
[2024-07-19 20:43] LABS: ALT 11 U/L (8-44); AST 13 U/L (13-35); Albumin 4.2 g/dL (3.8-4.9); Albumin/Globulin Ratio 1.75 Ratio (1.60-3.17); Alkaline Phosphatase 98 U/L (41-126); BUN/Creat Ratio 24.38 Ratio (12.00-20.00); Blood Urea Nitrogen 19.5 mg/dL (9.0-27.0); Calcium 9.4 mg/dL (8.7-10.3); Carbon Dioxide 24.9 mmol/L (21.6-31.8); Chloride 106 mmol/L (96-109); Globulin 2.4 g/dL (1.6-3.3); Glucose 99 mg/dL (70-110); Sodium 144 mmol/L (135-145); Total Bilirubin 0.3 mg/dL (0.3-1.2); Total Protein 6.6 g/dL (6.2-8.2); Uric Acid 3.9 mg/dL (2.9-7.7)
== END | disposition home or self-care (01) ==
LOC: LABWHC1 14:08
PROVIDERS: ATTEND Internal Medicine Geriatric Medicine
DX: Z12.31 Encounter for screening mammogram for malignant neoplasm of breast (principal); I12.9 Hypertensive chronic kidney disease with stage 1 through stage 4 chronic kidney disease, or unspecified chronic kidney disease; E11.22 Type 2 diabetes mellitus with diabetic chronic kidney disease; M81.0 Age-related osteoporosis without current pathological fracture; N18.9 Chronic kidney disease, unspecified
CPT/HCPCS: 36415; 80053; 82043; 82570; 83036; 84443; 84550; 85025

== ENCOUNTER → 2025-05-02 | Outpatient (CLI) | payer MEDICARE ==
--- NOTE | 2025-05-02 15:50 | XR ---
EXAMINATION TYPE: XR chest 2V DATE OF EXAM: 05/02/2025 3:40 PM COMPARISON: 07/24/2014 CLINICAL INDICATION: Female, 69 years old with history of R05.9 COUGH, TECHNIQUE: XR chest 2V view(s) obtained. FINDINGS: The heart size is normal. The pulmonary vasculature is normal. The lungs are clear. IMPRESSION: 1. No acute pulmonary process. [facility], , 05/02/2025 3:48 PM
[2025-05-02 19:14] LABS: Basophils # (A) 0.06 X 10*3/uL (0.00-0.10); Basophils % (A) 0.9 %; Eosinophils # (A) 0.13 X 10*3/uL (0.04-0.35); Eosinophils % (A) 1.9 %; HGB 13.5 g/dL (12.0-15.0); Lymphocytes # (A) 1.48 X 10*3/uL (0.90-5.00); Lymphocytes % (A) 21.3 %; MCH 27.7 pg (27.0-32.0); MCHC 31.4 g/dL (32.0-37.0); MCV 88.3 FL (80.0-97.0); Mean Platelet Volume 11.7 FL (9.5-12.2); Monocytes # (A) 0.44 X 10*3/uL (0.20-1.00); Monocytes % (A) 6.3 %; NRBC Per 100 WBC 0 X 10*3/uL (0.00-0.01); Neutrophils # (A) 4.81 X 10*3/uL (1.80-7.70); Neutrophils % (A) 69.3 %; Platelet Count 407 X 10*3/uL (140-440); RBC 4.87 X 10*6/uL (4.10-5.20); RDW 15.5 % (11.5-14.5); WBC 6.94 X 10*3/uL (4.50-10.00)
[2025-05-02 20:13] LABS: ALT 13 U/L (8-44); AST 18 U/L (13-35); Albumin 4.3 g/dL (3.8-4.9); Albumin/Globulin Ratio 1.54 Ratio (1.60-3.17); Alkaline Phosphatase 89 U/L (41-126); BUN/Creat Ratio 12.27 Ratio (12.00-20.00); Blood Urea Nitrogen 13.5 mg/dL (9.0-27.0); Calcium 10.1 mg/dL (8.7-10.3); Carbon Dioxide 23.6 mmol/L (21.6-31.8); Chloride 106 mmol/L (96-109); Chol/HDL Ratio 3.36 Ratio; Globulin 2.8 g/dL (1.6-3.3); Glucose 108 mg/dL (70-110); LDL Cholesterol,Calculated 107.7 mg/dL (0.0-131.0); Potassium 4.6 mmol/L (3.5-5.5); Sodium 142 mmol/L (135-145); Total Bilirubin 0.3 mg/dL (0.3-1.2); Total Protein 7.1 g/dL (6.2-8.2)
== END | disposition home or self-care (01) ==
LOC: LABWHC1 14:16
PROVIDERS: ATTEND Internal Medicine Geriatric Medicine
DX: E11.22 Type 2 diabetes mellitus with diabetic chronic kidney disease (principal); N18.2 Chronic kidney disease, stage 2 (mild); R42 Dizziness and giddiness; R05.9 Cough, unspecified
CPT/HCPCS: 36415; 71046; 80053; 80061; 83036; 84443; 85025